=== PATIENT | female | born 1965 | race African-American/Black ===

== ENCOUNTER 2018-04-19 13:23 | Inpatient (IN) | payer MEDICARE, OTHER ==
[~2018-04-19] VITALS: Ht 160 cm; Wt 72.6 kg
[2018-04-19 13:38] VITALS: BP 170/93
--- NOTE | 2018-04-19 13:40 | NUR ---
ED Nurse Note: A/OX4. AMBULATED IN TO ER DUE TO LEFT LOWER CP, VOMITTING ( 3 TIMES LAST NIGHT) SINCE YESTERDAY. NO VOMITING AT THIS TIME.
[2018-04-19] MEDS ORDERED: Lidocaine 2% Visc 15ml soln ORAL ONE (14:00)
[2018-04-19] MEDS ORDERED: Aspirin Baby 81mg ORAL ONE (14:00)
[2018-04-19 14:27] LABS: APPEARANCE,URINE CLEAR; BASOPHILS % (AUTO) 1.3 % (0.0-2.0); BILIRUBIN, URINE NEGATIVE (NEGATIVE); COLOR,URINE PALE YELLOW; EOSINOPHILS % (AUTO) 1.4 % (0.0-3.0); GLUCOSE, URINE (UA) NEGATIVE (NEGATIVE); HEMATOCRIT 34.8 % (37.0-47.0); HEMOGLOBIN 11.2 G/DL (12.0-16.0); KETONES,URINE NEGATIVE (NEGATIVE); LEUKOCYTE ESTERASE ,URINE NEGATIVE (NEGATIVE); LYMPHOCYTES % (AUTO) 42.8 % (20.0-45.0); MEAN CORPUSCULAR VOLUME 92 FL (80-99); MONOCYTES % (AUTO) 5.9 % (1.0-10.0); NEUTROPHILS % (AUTO) 48.5 % (45.0-75.0); NITRITE,URINE NEGATIVE (NEGATIVE); PH,URINE 5 (4.5-8.0); PLATELET COUNT 222 K/UL (150-450); PROTEIN,URINE 3+ (NEGATIVE); RED BLOOD COUNT 3.79 M/UL (4.20-5.40); RED CELL DISTRIBUTION WIDTH 13.8 % (11.6-14.8); UROBILINOGEN,URINE NORMAL MG/DL (0.0-1.0); WHITE BLOOD COUNT 8.9 K/UL (4.8-10.8)
[2018-04-19 14:38] LABS: ANION GAP 11 mmol/L (5-15); BLOOD UREA NITROGEN 21 mg/dL (7-18); CARBON DIOXIDE 23 MMOL/L (21-32); CHLORIDE 105 MMOL/L (98-107); CREATININE 1.3 MG/DL (0.55-1.30); POTASSIUM 4.3 MMOL/L (3.5-5.1); SODIUM 138 MMOL/L (136-145)
[2018-04-19 14:57] LABS: ALANINE AMINOTRANSFERASE 24 U/L (12-78); ALBUMIN 3.3 G/DL (3.4-5.0); ALBUMIN/GLOBULIN RATIO 0.8 (1.0-2.7); ALKALINE PHOSPHATASE 131 U/L (46-116); ASPARTATE AMINO TRANSFERASE 13 U/L (15-37); BILIRUBIN,TOTAL 0.2 MG/DL (0.2-1.0); CKMB 0.9 NG/ML (0.0-3.6); CREATINE KINASE 129 U/L (26-308)
[2018-04-19] MEDS ORDERED: AMLODIPINE BESY10 MG ORAL (15:00)
[2018-04-19] MEDS ORDERED: ATORVASTATIN CA40 MG ORAL (15:00)
[2018-04-19] MEDS ORDERED: VICTOZA 2-0.6 MG/0.1 SUBQ (15:00)
[2018-04-19] MEDS ORDERED: DIOVAN320 MG ORAL (15:00)
[2018-04-19] MEDS ORDERED: VITAMIN D1000 UNI1 ORAL ×2 (15:00→17:48)
[2018-04-19] MEDS ORDERED: GABAPENTIN300 MG ORAL (15:00)
[2018-04-19] MEDS ORDERED: Jardiance ORAL (15:00)
[2018-04-19] MEDS ORDERED: ISOSORBIDE MONO20 MG PO (15:00)
[2018-04-19] MEDS ORDERED: LANTUS SOL100 UNIT/1 SUBQ (15:00)
[2018-04-19] MEDS ORDERED: HUMALOG 75/255 UNIT1 SUBQ (15:00)
[2018-04-19] MEDS ORDERED: METOPROLOL TART50 M1 ORAL (15:00)
[2018-04-19] MEDS ORDERED: ASPIR 8181 MG ORAL (15:00)
[2018-04-19] MEDS ORDERED: BRILINTA90 MG PO (15:00)
[2018-04-19] MEDS ORDERED: CHLORTHALIDONE25 MG ORAL (15:00)
--- NOTE | 2018-04-19 15:01 | NUR ---
ED Nurse Note: Received report from RN Adam, pt is resting at this time, reports pain on under left breast area radiating to back, sharp pain, pt VSS, NSR on monitor and storage bin tender, -n/v/d, resp even and unlabored on RA, will cont monitor. pt advised to notify staff if needed assist.
[2018-04-19 15:03] VITALS: BP 180/88
--- NOTE | 2018-04-19 15:11 | Emergency Room Report ---
History of Present Illness General Chief Complaint: Chest Pain Source: Patient Present Illness HPI This patient has several different complaints. She states that she did see her primary care physician who instructed her to come here to the emergency department. The patient states that for the past 2 days she has had left-sided chest pain. She states she is also had tingling in her left arm. She states she's had 2 days of recurrent vomiting. She states the vomiting will occur at night. She states she's also had constipation. She states she did have a small hard bowel movement this morning. She states that she has vomited about 10 times in the past 2 days. She denies fever or chills. She denies dysuria or hematuria. She denies diarrhea. She has had diffuse abdominal discomfort and recurrent burping. She has no other complaints. Allergies: Coded Allergies: CEPHALEXIN (Verified Allergy, Unknown, 04/19/18) Patient History Past Medical History: see triage record, DM, HTN, OR - Stentx2, CAD, GERD Past Surgical History: karol Social History: Reports: smoking; Denies: alcohol use, drug use Reviewed Nursing Documentation: PMH: Agreed; PSxH: Agreed Nursing Documentation-PMH Hx Hypertension: Yes Hx Diabetes: Yes Hx Gastrointestinal Problems: Yes - gallstone Review of Systems All Other Systems: negative except mentioned in HPI Physical Exam Vital Signs Date Time Temp Pulse Resp B/P (MAP) Pulse Ox O2 Delivery O2 Flow Rate FiO2 04/19/18 13:31 98.2 99 16 159/76 99 Room Air Sp02 EP Interpretation: reviewed, normal General Appearance: no apparent distress, alert, GCS 15, non-toxic Head: normocephalic, atraumatic Eyes: bilateral eye normal inspection, bilateral eye PERRL ENT: hearing grossly normal, normal pharynx, no angioedema, normal voice Neck: full range of motion, supple/symm/no masses Respiratory: lungs clear, normal breath sounds, no respiratory distress, no retraction, no accessory muscle use, speaking full sentences, other - Chest wall is TTP throughout the L. side. Cardiovascular #1: regular rate, rhythm, no edema Gastrointestinal: normal bowel sounds, soft, non-distended, no guarding, no rebound, tenderness - TTP in the epigastrium Rectal: deferred Musculoskeletal: back normal, gait/station normal, normal range of motion, non- tender Neurologic: alert, oriented x3, responsive, motor strength/tone normal, sensory intact, speech normal Psychiatric: judgement/insight normal, memory normal, mood/affect normal, no suicidal/homicidal ideation Skin: normal color, no rash, warm/dry, well hydrated Medical Decision Making Diagnostic Impression: Primary Impression: Chest pain ER Course This patient presents with chest pain. The patient does have a history of coronary artery disease and OR. 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 The patient also has history and physical exam that could also be a gastritis. The patient also has ongoing constipation. The patient will be admitted for further evaluation of her chest pain and recurrent vomiting. Likely this patient will need an evaluation by gastroenterology. She is admitted for further evaluation and treatment. Laboratory Tests Test 04/19/18 14:00 White Blood Count 8.9 K/UL (4.8-10.8) Red Blood Count 3.79 M/UL (4.20-5.40) L Hemoglobin 11.2 G/DL (12.0-16.0) L Hematocrit 34.8 % (37.0-47.0) L Mean Corpuscular Volume 92 FL (80-99) Mean Corpuscular Hemoglobin 29.6 PG (27.0-31.0) Mean Corpuscular Hemoglobin Concent 32.2 G/DL (32.0-36.0) Red Cell Distribution Width 13.8 % (11.6-14.8) Platelet Count 222 K/UL (150-450) Mean Platelet Volume 8.7 FL (6.5-10.1) Neutrophils (%) (Auto) 48.5 % (45.0-75.0) Lymphocytes (%) (Auto) 42.8 % (20.0-45.0) Monocytes (%) (Auto) 5.9 % (1.0-10.0) Eosinophils (%) (Auto) 1.4 % (0.0-3.0) Basophils (%) (Auto) 1.3 % (0.0-2.0) Urine Color Pale yellow Urine Appearance Clear Urine pH 5 (4.5-8.0) Urine Specific [place] 1.010 (1.005-1.035) Urine Protein 3+ (NEGATIVE) H Urine Glucose (UA) Negative (NEGATIVE) Urine Ketones Negative (NEGATIVE) Urine Blood 1+ (NEGATIVE) H Urine Nitrite Negative (NEGATIVE) Urine Bilirubin Negative (NEGATIVE) Urine Urobilinogen Normal MG/DL (0.0-1.0) Urine Leukocyte Esterase Negative (NEGATIVE) Urine RBC 0-2 /HPF (0 - 2) Urine WBC 0 /HPF (0 - 2) Urine Squamous Epithelial Cells Few /LPF (NONE/OCC) Urine Bacteria Occasional /HPF (NONE) Sodium Level 138 MMOL/L (136-145) Potassium Level 4.3 MMOL/L (3.5-5.1) Chloride Level 105 MMOL/L (98-107) Carbon Dioxide Level 23 MMOL/L (21-32) Anion Gap 11 mmol/L (5-15) Blood Urea Nitrogen 21 mg/dL (7-18) H Creatinine 1.3 MG/DL (0.55-1.30) Estimate Glomerular Filtration Rate 42.7 mL/min (>60) Glucose Level 255 MG/DL (74-106) H Calcium Level 9.0 MG/DL (8.5-10.1) Total Bilirubin 0.2 MG/DL (0.2-1.0) Aspartate Amino Transferase (AST) 13 U/L (15-37) L Alanine Aminotransferase (ALT) 24 U/L (12-78) Alkaline Phosphatase 131 U/L (46-116) H Total Creatine Kinase 129 U/L (26-308) Creatine Kinase MB 0.9 NG/ML (0.0-3.6) Creatine Kinase MB Relative Index 0.6 Troponin I 0.007 ng/mL (0.000-0.056) Pro-B-Type Natriuretic Peptide 650 pg/mL (0-125) H Total Protein 7.4 G/DL (6.4-8.2) Albumin 3.3 G/DL (3.4-5.0) L Globulin 4.1 g/dL Albumin/Globulin Ratio 0.8 (1.0-2.7) L Lipase 250 U/L (73-393) Urine Opiates Screen Negative (NEGATIVE) Urine Barbiturates Screen Negative (NEGATIVE) Phencyclidine (PCP) Screen Negative (NEGATIVE) Urine Amphetamines Screen Negative (NEGATIVE) Urine Benzodiazepines Screen Positive (NEGATIVE) H Urine Cocaine Screen Negative (NEGATIVE) Urine Marijuana (THC) Screen Negative (NEGATIVE) EKG Diagnostic Results Rate: normal Rhythm: NSR ST Segments: no acute changes Rhythm Strip Diag. Results EP Interpretation: yes Rate: 90's Rhythm: NSR, no PVC's, no ectopy Chest X-Ray Diagnostic Results Chest X-Ray Diagnostic Results : Chest X-Ray Ordered: Yes # of Views/Limited/Complete: 1 View Indication: Chest Pain EP Interpretation: Yes Interpretation: no consolidation, no effusion, no pneumothorax, no acute cardiopulmonary disease Impression: No acute disease Electronically Signed by: Lizzette Hardy DO CT/MRI/US Diagnostic Results CT/MRI/US Diagnostic Results : Imaging Test Ordered: CT abd/pelvis Impression Impression: Limited assessment of the GI tract, due to lack of enteric contrast demonstration No definite acute abnormality Colonic diverticulosis. No evidence of diverticulitis. Incidental finding of rectus abdominis tendon diastasis Evidence of prior cholecystectomy. Subcentimeter low-attenuation left lobe liver lesion, too small to characterize , most likely benign simple cyst or bile hamartoma. No further follow-up necessary Last Vital Signs Date Time Temp Pulse Resp B/P (MAP) Pulse Ox O2 Delivery O2 Flow Rate FiO2 04/19/18 15:03 98.2 92 16 180/88 99 Room Air Status: improved Disposition: ADMITTED INPATIENT Condition: Stable Lizzette Hardy DO Apr 19, 2018 15:11
[2018-04-19] MEDS ORDERED: Ketorolac 30mg Inj IV ONE (15:30)
[2018-04-19] MEDS ORDERED: Isovue-300 100ml vial INJ PRN (15:30)
[2018-04-19 16:00] VITALS: BP 167/97
--- NOTE | 2018-04-19 16:03 | NUR ---
ED Nurse Note: pt off to CT.
--- NOTE | 2018-04-19 17:16 | Diagnostic Imaging Report ---
Clinical Indication: Abdominal pain and nausea and vomiting x2 days Technique: No oral contrast utilized, per emergency room physician request IV administration nonionic contrast. Venous phase spiral acquisition obtained through the abdomen and pelvis. Multiplanar reconstructions were generated. Total dose length product 587.91 mGycm. CTDIvol(s) 12.54 mGy. Dose reduction achieved using automated exposure control Comparison: none Findings: Assessment of the GI tract is limited, due to lack of enteric contrast demonstration There is colonic diverticulosis. No evidence of diverticulitis. No small bowel distention. The appendix is normal. There is diastasis of the rectus abdominis tendon without krista herniation. No free or loculated intraperitoneal gas or fluid is evident. Distal esophagus, stomach, duodenum are unremarkable. The liver demonstrates a subcentimeter low-attenuation lesion in segment 2. The gallbladder is surgically absent. No biliary ductal dilatation. The pancreas, spleen, adrenals, kidneys are unremarkable. No retroperitoneal or mesenteric mass or adenopathy. No pelvic mass or adenopathy. The uterus and adnexal structures are unremarkable. The bladder is unremarkable. The included lung bases demonstrate minimal posterior dependent atelectatic changes. The bones are unremarkable. Impression: Limited assessment of the GI tract, due to lack of enteric contrast demonstration No definite acute abnormality Colonic diverticulosis. No evidence of diverticulitis. Incidental finding of rectus abdominis tendon diastasis Evidence of prior cholecystectomy. Subcentimeter low-attenuation left lobe liver lesion, too small to characterize, most likely benign simple cyst or bile hamartoma. No further follow-up necessary The CT scanner at [facility] is accredited by the [employer] [place] [place] [employer] and the scans are performed using protocols designed to limit radiation exposure to as low as reasonably achievable to attain images of sufficient resolution adequate for diagnostic evaluation.
--- NOTE | 2018-04-19 17:33 | Diagnostic Imaging Report ---
Indication: Chest pain Technique: One view of the chest Comparison: none Findings: Lungs and pleural spaces are clear. Heart size is normal Impression: No acute process
[2018-04-19] MEDS ORDERED: ATORVASTATIN CA80 MG ORAL (17:47)
[2018-04-19] MEDS ORDERED: ISOSORBIDE MONO30 M1 PO (17:52)
[2018-04-19 18:00] VITALS: BP 167/95
--- NOTE | 2018-04-19 18:45 | NUR ---
ED Nurse Note: attempted to give report Rosio JAQUEZ, states will not be taking report on pt at this time. admission discharge rnamaya Thompson
--- NOTE | 2018-04-19 19:19 | Cardiology Progress Note ---
Assessment/Plan Assessment/Plan The patient is seen and examined, full consult note is dictated. Objective Last 24 Hour Vital Signs Date Time Temp Pulse Resp B/P (MAP) Pulse Ox O2 Delivery O2 Flow Rate FiO2 04/19/18 18:00 98.2 89 16 167/95 99 Room Air 04/19/18 16:09 98.2 04/19/18 16:00 98.2 90 16 167/97 99 Room Air 04/19/18 15:03 98.2 92 16 180/88 99 Room Air 04/19/18 13:38 98.2 92 18 170/93 100 Room Air 04/19/18 13:38 82 16 Room Air 04/19/18 13:31 98.2 99 16 159/76 99 Room Air Laboratory Tests Test 04/19/18 14:00 White Blood Count 8.9 K/UL (4.8-10.8) Red Blood Count 3.79 M/UL (4.20-5.40) L Hemoglobin 11.2 G/DL (12.0-16.0) L Hematocrit 34.8 % (37.0-47.0) L Mean Corpuscular Volume 92 FL (80-99) Mean Corpuscular Hemoglobin 29.6 PG (27.0-31.0) Mean Corpuscular Hemoglobin Concent 32.2 G/DL (32.0-36.0) Red Cell Distribution Width 13.8 % (11.6-14.8) Platelet Count 222 K/UL (150-450) Mean Platelet Volume 8.7 FL (6.5-10.1) Neutrophils (%) (Auto) 48.5 % (45.0-75.0) Lymphocytes (%) (Auto) 42.8 % (20.0-45.0) Monocytes (%) (Auto) 5.9 % (1.0-10.0) Eosinophils (%) (Auto) 1.4 % (0.0-3.0) Basophils (%) (Auto) 1.3 % (0.0-2.0) Urine Color Pale yellow Urine Appearance Clear Urine pH 5 (4.5-8.0) Urine Specific [place] 1.010 (1.005-1.035) Urine Protein 3+ (NEGATIVE) H Urine Glucose (UA) Negative (NEGATIVE) Urine Ketones Negative (NEGATIVE) Urine Blood 1+ (NEGATIVE) H Urine Nitrite Negative (NEGATIVE) Urine Bilirubin Negative (NEGATIVE) Urine Urobilinogen Normal MG/DL (0.0-1.0) Urine Leukocyte Esterase Negative (NEGATIVE) Urine RBC 0-2 /HPF (0 - 2) Urine WBC 0 /HPF (0 - 2) Urine Squamous Epithelial Cells Few /LPF (NONE/OCC) Urine Bacteria Occasional /HPF (NONE) Sodium Level 138 MMOL/L (136-145) Potassium Level 4.3 MMOL/L (3.5-5.1) Chloride Level 105 MMOL/L (98-107) Carbon Dioxide Level 23 MMOL/L (21-32) Anion Gap 11 mmol/L (5-15) Blood Urea Nitrogen 21 mg/dL (7-18) H Creatinine 1.3 MG/DL (0.55-1.30) Estimat Glomerular Filtration Rate 42.7 mL/min (>60) Glucose Level 255 MG/DL (74-106) H Calcium Level 9.0 MG/DL (8.5-10.1) Total Bilirubin 0.2 MG/DL (0.2-1.0) Aspartate Amino Transf (AST/SGOT) 13 U/L (15-37) L Alanine Aminotransferase (ALT/SGPT) 24 U/L (12-78) Alkaline Phosphatase 131 U/L (46-116) H Total Creatine Kinase 129 U/L (26-308) Creatine Kinase MB 0.9 NG/ML (0.0-3.6) Creatine Kinase MB Relative Index 0.6 Troponin I 0.007 ng/mL (0.000-0.056) Pro-B-Type Natriuretic Peptide 650 pg/mL (0-125) H Total Protein 7.4 G/DL (6.4-8.2) Albumin 3.3 G/DL (3.4-5.0) L Globulin 4.1 g/dL Albumin/Globulin Ratio 0.8 (1.0-2.7) L Lipase 250 U/L (73-393) Urine Opiates Screen Negative (NEGATIVE) Urine Barbiturates Screen Negative (NEGATIVE) Phencyclidine (PCP) Screen Negative (NEGATIVE) Urine Amphetamines Screen Negative (NEGATIVE) Urine Benzodiazepines Screen Positive (NEGATIVE) H Urine Cocaine Screen Negative (NEGATIVE) Urine Marijuana (THC) Screen Negative (NEGATIVE) Connor Rivera MD Apr 19, 2018 19:19
--- NOTE | 2018-04-19 19:30 | NUR ---
ED Nurse Note: attempted giving report, unable to give report at this time due to no nurse assigned to the pt. charge nursed notified.
--- NOTE | 2018-04-19 20:02 | NUR ---
ED Nurse Note: called Dr. Rivera for admission orders and left voicemail.
--- NOTE | 2018-04-19 20:30 | NUR ---
ED Nurse Note: pt transferred to Tele floor, all belongings sent with pt, resp even and unlabored, VSS.
[2018-04-19 21:00] VITALS: BP 176/83
--- NOTE | 2018-04-19 21:00 | NUR ---
NURSE NOTES: Received report from Davey Shepard ED RN. Pt came to 2E via gurney and walked to the bed with steady gait. Belonging list checked and environmental monitoring technician is applied. Pt is able to make needs known. Safety measures are applied as bed in lowest position, side rails up x2, and breaks are engaged. Call light and side table are w/in reach. Will contact PCP to complete admission order. Addendum: 04/19/18 at 8730 by SATYA BUR[address] RN Dr. Rivera called back and tele ordered. Will carry out the orders.
[2018-04-19] MEDS ORDERED: Bisacodyl EC 5mg tab ORAL SCH (21:15)
[2018-04-19] MEDS ORDERED: Fleet's Enema 133ml RECTAL SCH (21:15)
[2018-04-19] MEDS ORDERED: Nulytely 4L ORAL ONE (22:00)
[2018-04-19] MEDS ORDERED: Nitroglycerin Subl 0.4mg tab SL PRN (23:00)
[2018-04-19] MEDS ORDERED: Losartan 50mg tab ORAL ONE (23:15)
[2018-04-19] MEDS ORDERED: Losartan 50mg tab ORAL PRN (23:15)
[2018-04-19] MEDS ORDERED: Vitamin D 1000 IU Tab ORAL SCH (23:30)
[2018-04-20] VITALS (11 sets, daily range): BP systolic 137–168; BP diastolic 75–95
[2018-04-20] MEDS: Norco 5mg/325mg tab ORAL PRN ×2 (00:28→20:34)
[2018-04-20] MEDS ORDERED: Fleet's Enema 133ml RECTAL SCH ×2 (02:00→06:00)
--- NOTE | 2018-04-20 03:13 | NUR ---
NURSE NOTES: Midnight NPO has been kept. Pt is resting in the bed w/o respiratory distress in 2L NC. Will continue to monitor.
[2018-04-20] MEDS ORDERED: NS 500ML IVPB ONE ×2 (04:03→13:15)
[2018-04-20] MEDS: NovoLOG Insulin Flexpen SUBQ SCH ×4 (06:30→20:39)
[2018-04-20 07:11] LABS: ANION GAP 10 mmol/L (5-15); BLOOD UREA NITROGEN 20 mg/dL (7-18); CALCIUM 8.1 MG/DL (8.5-10.1); CARBON DIOXIDE 21 MMOL/L (21-32); CHLORIDE 107 MMOL/L (98-107); CHOLESTEROL 161 MG/DL (< 200); CREATININE 1.4 MG/DL (0.55-1.30); HDL CHOLESTEROL 35 MG/DL (40-60); POTASSIUM 3.9 MMOL/L (3.5-5.1); SODIUM 138 MMOL/L (136-145); TRIGLYCERIDES 246 MG/DL (30-150)
--- NOTE | 2018-04-20 07:20 | NUR ---
NURSE NOTES: Received report from Skye JAQUEZ. Pt is awake, alert, oriented x4, resting in bed while watching TV. Pt has been NPO since midnight, with the exception of her Bowel prep as ordered, awaiting for EGD and Colonoscopy as scheduled for today. Denies pain, on room air with no respiratory distress. Pt is ambulatory with steady gait. IV access on left FA #20G, infusing D5 0.45% NS at 50ml/hour. Skin is intact. Pt has had BM x2 during previous shift after receiving bowel prep. Per nurse and pt report, stool is still semi-solid, not clear. Will administer Enema as ordered. Call light is placed within easy reach, bed in lowest position, two side rails up, brakes engaged. Will continue to monitor pt and follow plan of care per MD orders and protocol.
--- NOTE | 2018-04-20 07:48 | NUR ---
HAND-OFF: Report given to GISELE Serna. Addendum: 04/20/18 at 0803 by SATYA BURGOS RN Consents is done in the chart.
--- NOTE | 2018-04-20 07:57 | NUR ---
CASE MANAGEMENT:REVIEW 52 YR OLD FEMALE FROM HOME CC: CHEST PAIN AND VOMITING PMH: HI. STENTS X2. GALLSTONES SI: ACS 98.2 99 16 159/76 99% ON RA GLUCOSE+255 TROPONIN(-) IS: ASA IV PEPCID IV TORADOL GI COCKTAIL 1L NS BOLUS CT ABDOMEN CXR : TO TELEMETRY INTERQUAL CRITERIA MET
[2018-04-20] MEDS: Imdur 30mg tab ORAL SCH (09:00)
[2018-04-20] MEDS: Irbesartan 150mg tablet ORAL SCH (09:00)
[2018-04-20] MEDS: Heparin 5000 units/ml inj SUBQ SCH ×2 (09:00→20:38)
[2018-04-20] MEDS: Metoprolol Tartrate 50mg tab ORAL SCH ×2 (09:12→20:44)
[2018-04-20] MEDS: D5 1/2NS 1,000 ML IV SCH (09:17)
--- NOTE | 2018-04-20 09:42 | Pre-Procedure Note/Attestation ---
Pre-Procedure Note/Attestation Complete Prior to Procedure Planned Procedure: not applicable Procedure Narrative: esophagogastroduodenoscopy and colonoscopy Indications for Procedure Pre-Operative Diagnosis: anemia, abd pain Attestation I attest that I discussed the nature of the procedure; its benefits; risks and complications; and alternatives (and the risks and benefits of such alternatives ), prior to the procedure, with the patient (or the patient's legal lead generation representative). I attest that, if there was a reasonable possibility of needing a blood transfusion, the patient (or the patient's legal lead generation representative) was given the [facility] standardized written summary, pursuant to the [place] Blood Safety Act ([place] Health and Safety Code # 1645, as amended). I attest that I re-evaluated the patient just prior to the surgery and that there has been no change in the patient's H&P, except as documented below: Grey De La Rosa MD Apr 20, 2018 09:42
--- NOTE | 2018-04-20 09:44 | General Progress Note ---
Assessment/Plan Problem List: (1) Anemia ICD Codes: D64.9 - Anemia, unspecified SNOMED: 420865304 (2) Chest pain ICD Codes: R07.9 - Chest pain, unspecified SNOMED: 55769236 Assessment/Plan plan EGD and colonoscopy for today Subjective ROS Limited/Unobtainable: Yes Allergies: Coded Allergies: CEPHALEXIN (Verified Allergy, Unknown, 04/19/18) Subjective abd pain vomiting Objective Last 24 Hour Vital Signs Date Time Temp Pulse Resp B/P (MAP) Pulse Ox O2 Delivery O2 Flow Rate FiO2 04/20/18 09:12 83 143/81 04/20/18 09:12 83 143/81 04/20/18 04:00 97.0 88 18 157/86 (109) 93 04/20/18 03:43 86 04/20/18 02:30 Nasal Cannula 2.0 04/20/18 00:26 145/75 04/20/18 00:00 97.3 88 20 145/75 (98) 93 04/19/18 23:43 82 04/19/18 21:00 97.8 90 20 176/83 (114) 90 04/19/18 20:30 97.4 91 16 158/87 100 Room Air 04/19/18 18:00 98.2 89 16 167/95 99 Room Air 04/19/18 16:09 98.2 04/19/18 16:00 98.2 90 16 167/97 99 Room Air 04/19/18 15:03 98.2 92 16 180/88 99 Room Air 04/19/18 13:38 98.2 92 18 170/93 100 Room Air 04/19/18 13:38 82 16 Room Air 04/19/18 13:31 98.2 99 16 159/76 99 Room Air Laboratory Tests 04/19/18 14:00: White Blood Count 8.9, Red Blood Count 3.79L, Hemoglobin 11.2L, Hematocrit 34.8L , Mean Corpuscular Volume 92, Mean Corpuscular Hemoglobin 29.6, Mean Corpuscular Hemoglobin Concent 32.2, Red Cell Distribution Width 13.8, Platelet Count 222, Mean Platelet Volume 8.7, Neutrophils (%) (Auto) 48.5, Lymphocytes (% ) (Auto) 42.8, Monocytes (%) (Auto) 5.9, Eosinophils (%) (Auto) 1.4, Basophils ( %) (Auto) 1.3, Urine Color Pale yellow, Urine Appearance Clear, Urine pH 5, Urine Specific [place] 1.010, Urine Protein 3+H, Urine Glucose (UA) Negative, Urine Ketones Negative, Urine Blood 1+H, Urine Nitrite Negative, Urine Bilirubin Negative, Urine Urobilinogen Normal, Urine Leukocyte Esterase Negative , Urine RBC 0-2, Urine WBC 0, Urine Squamous Epithelial Cells Few, Urine Bacteria Occasional, Sodium Level 138, Potassium Level 4.3, Chloride Level 105, Carbon Dioxide Level 23, Anion Gap 11, Blood Urea Nitrogen 21H, Creatinine 1.3, Estimat Glomerular Filtration Rate 42.7, Glucose Level 255H, Calcium Level 9.0, Total Bilirubin 0.2, Aspartate Amino Transf (AST/SGOT) 13L, Alanine Aminotransferase (ALT/SGPT) 24, Alkaline Phosphatase 131H, Total Creatine Kinase 129, Creatine Kinase MB 0.9, Creatine Kinase MB Relative Index 0.6, Troponin I 0.007, Pro-B-Type Natriuretic Peptide 650H, Total Protein 7.4, Albumin 3.3L, Globulin 4.1, Albumin/Globulin Ratio 0.8L, Lipase 250, Urine Opiates Screen Negative, Urine Barbiturates Screen Negative, Phencyclidine (PCP ) Screen Negative, Urine Amphetamines Screen Negative, Urine Benzodiazepines Screen PositiveH, Urine Cocaine Screen Negative, Urine Marijuana (THC) Screen Negative 04/20/18 00:20: Troponin I 0.009 04/20/18 05:00: Sodium Level 138, Potassium Level 3.9, Chloride Level 107, Carbon Dioxide Level 21, Anion Gap 10, Blood Urea Nitrogen 20H, Creatinine 1.4H, Estimat Glomerular Filtration Rate 47.5, Glucose Level 348H, Calcium Level 8.1L, Prothrombin Time 10.7, Prothromb Time International Ratio 1.0, Activated Partial Thromboplast Time 28, Hemoglobin A1c 10.6H, Triglycerides Level 246H, Cholesterol Level 161, LDL Cholesterol 94, HDL Cholesterol 35L, Cholesterol/HDL Ratio 4.6H Height (Feet): 5 Height (Inches): 3.00 Weight (Pounds): 160 General Appearance: alert EENT: normal ENT inspection Neck: supple Cardiovascular: normal rate Respiratory/Chest: decreased breath sounds Abdomen: normal bowel sounds, non tender, soft Extremities: non-tender Vosoghi,Grey MD Apr 20, 2018 09:44
[2018-04-20] MEDS ORDERED: Magnesium Citrate Liq Btl ORAL ONE (10:00)
--- NOTE | 2018-04-20 10:00 | NUR ---
NURSE NOTES: Spoke with Dr De La Rosa over the phone. Will administer Mag Citrate PO, and Enema as ordered.
--- NOTE | 2018-04-20 10:07 | GI Initial Consult Note ---
History of Present Illness General Date patient seen: Apr 20, 2018 Time patient seen: 09:00 Reason for Hospitalization: Chest Pain Referring physician: BING Reason for Consultation: ABDOMINAL PAIN, N/V Present Illness HPI This patient has several different complaints. She states that she did see her primary care physician who instructed her to come here to the emergency department. The patient states that for the past 2 days she has had left-sided chest pain. She states she is also had tingling in her left arm. She states she's had 2 days of recurrent vomiting. She states the vomiting will occur at night. She states she's also had constipation. She states she did have a small hard bowel movement this morning. She states that she has vomited about 10 times in the past 2 days. She denies fever or chills. She denies dysuria or hematuria. She denies diarrhea. She has had diffuse abdominal discomfort and recurrent burping. She has no other complaints. GI consulted for abdominal pain, recurrent vomiting. The patient was seen, awake alert and oriented x4 in no apparent distress. The patient has complaint of abdominal versus chest pain. Stated that he had excessive vomiting for the past 2 days. At this time seems comfortable without any signs or symptoms of nausea or vomiting. Labs reviewed; patient noted with mild anemia. No transaminitis. Positive U tox for benzodiazepine. Abdominal CT was done with no acute abnormality. Patient has no history of endoscopic or colonoscopy. Home Meds Reported Medications Isosorbide Mononitrate (ISOSORBIDE MONONITRATE ER) 30 Mg Tab.er.24h, 30 MG PO DAILY, TAB 04/19/18 Cholecalciferol (Vitamin D3)* (VITAMIN D*) 1,000 Unit Tablet, 2000 UNITS ORAL QWEEK, #30 TAB 0 Refills 04/19/18 Atorvastatin Calcium* (LIPITOR*) 80 Mg Tablet, 80 MG ORAL BEDTIME, TAB 04/19/18 Gabapentin* (GABAPENTIN*) 300 Mg Capsule, 300 MG ORAL THREE TIMES A DAY, CAP 0 Refills 04/19/18 Ticagrelor* (BRILINTA*) 90 Mg Tablet, 90 MG PO DAILY, TAB 04/19/18 Aspirin* (ASPIR 81*) 81 Mg Tablet.dr, 81 MG ORAL DAILY, TAB 04/19/18 Metoprolol Tartrate* (METOPROLOL TARTRATE*) 50 Mg Tablet, 50 MG ORAL EVERY 12 HOURS, TAB 04/19/18 Amlodipine Besylate* (AMLODIPINE BESYLATE*) 10 Mg Tablet, 10 MG ORAL DAILY, TAB 04/19/18 Chlorthalidone* (CHLORTHALIDONE*) 25 Mg Tablet, 25 MG ORAL DAILY, TAB 04/19/18 Valsartan (DIOVAN) 320 Mg Tablet, 320 MG ORAL DAILY, TAB 04/19/18 [Jardiance ] No Conflict Check, 25 MG ORAL DAILY 04/19/18 Insulin Human Lispro (Humalog) 100 Unit/1 Ml Vial, 16 UNITS SUBQ TID, #1 UNIT 0 Refills 04/19/18 Insulin Glargine (LANTUS) 100 Unit/1 Ml Insuln.pen, 40 UNITS SUBQ BEDTIME, #1 EA 0 Refills 04/19/18 Liraglutide (VICTOZA 2-KAREN) 0.6 Mg/0.1 Ml Pen.injctr, 1.8 MG SUBQ DAILY, EA 0 Refills 04/19/18 Discontinued Reported Medications Cholecalciferol (Vitamin D3)* (VITAMIN D*) 1,000 Unit Tablet, 2000 UNITS ORAL ONCE A WEEK, #30 TAB 0 Refills 04/19/18 Isosorbide Mononitrate (ISOSORBIDE MONONITRATE) 20 Mg Tablet, 30 MG PO DAILY, TAB 04/19/18 Atorvastatin Calcium* (ATORVASTATIN CALCIUM*) 40 Mg Tablet, 80 MG ORAL BEDTIME, TAB 04/19/18 Med list reviewed/reconciled: Yes Allergies: Coded Allergies: CEPHALEXIN (Verified Allergy, Unknown, 04/19/18) Patient History PMH Narrative Past Medical History: see triage record, DM, HTN, CA - Stentx2, CAD, GERD Past Surgical History: karol Social History: Reports: smoking; Denies: alcohol use, drug use Reviewed Nursing Documentation: PMH: Agreed; PSxH: Agreed Nursing Documentation-PMH Hx Hypertension: Yes Hx Diabetes: Yes Hx Gastrointestinal Problems: Yes - gallstone Review of Systems All Other Systems: negative except mentioned in HPI Physical Exam Vital Signs Date Time Temp Pulse Resp B/P (MAP) Pulse Ox O2 Delivery O2 Flow Rate FiO2 04/19/18 13:31 98.2 99 16 159/76 99 Room Air 04/20/18 02:30 2.0 Sp02 EP Interpretation: reviewed, normal Labs Laboratory Tests Test 04/19/18 14:00 04/20/18 00:20 04/20/18 05:00 White Blood Count 8.9 K/UL (4.8-10.8) Red Blood Count 3.79 M/UL (4.20-5.40) L Hemoglobin 11.2 G/DL (12.0-16.0) L Hematocrit 34.8 % (37.0-47.0) L Mean Corpuscular Volume 92 FL (80-99) Mean Corpuscular Hemoglobin 29.6 PG (27.0-31.0) Mean Corpuscular Hemoglobin Concent 32.2 G/DL (32.0-36.0) Red Cell Distribution Width 13.8 % (11.6-14.8) Platelet Count 222 K/UL (150-450) Mean Platelet Volume 8.7 FL (6.5-10.1) Neutrophils (%) (Auto) 48.5 % (45.0-75.0) Lymphocytes (%) (Auto) 42.8 % (20.0-45.0) Monocytes (%) (Auto) 5.9 % (1.0-10.0) Eosinophils (%) (Auto) 1.4 % (0.0-3.0) Basophils (%) (Auto) 1.3 % (0.0-2.0) Urine Color Pale yellow Urine Appearance Clear Urine pH 5 (4.5-8.0) Urine Specific [place] 1.010 (1.005-1.035) Urine Protein 3+ (NEGATIVE) H Urine Glucose (UA) Negative (NEGATIVE) Urine Ketones Negative (NEGATIVE) Urine Blood 1+ (NEGATIVE) H Urine Nitrite Negative (NEGATIVE) Urine Bilirubin Negative (NEGATIVE) Urine Urobilinogen Normal MG/DL (0.0-1.0) Urine Leukocyte Esterase Negative (NEGATIVE) Urine RBC 0-2 /HPF (0 - 2) Urine WBC 0 /HPF (0 - 2) Urine Squamous Epithelial Cells Few /LPF (NONE/OCC) Urine Bacteria Occasional /HPF (NONE) Sodium Level 138 MMOL/L (136-145) 138 MMOL/L (136-145) Potassium Level 4.3 MMOL/L (3.5-5.1) 3.9 MMOL/L (3.5-5.1) Chloride Level 105 MMOL/L (98-107) 107 MMOL/L (98-107) Carbon Dioxide Level 23 MMOL/L (21-32) 21 MMOL/L (21-32) Anion Gap 11 mmol/L (5-15) 10 mmol/L (5-15) Blood Urea Nitrogen 21 mg/dL (7-18) H 20 mg/dL (7-18) H Creatinine 1.3 MG/DL (0.55-1.30) 1.4 MG/DL (0.55-1.30) H Estimat Glomerular Filtration Rate 42.7 mL/min (>60) 47.5 mL/min (>60) Glucose Level 255 MG/DL (74-106) H 348 MG/DL (74-106) H Calcium Level 9.0 MG/DL (8.5-10.1) 8.1 MG/DL (8.5-10.1) L Total Bilirubin 0.2 MG/DL (0.2-1.0) Aspartate Amino Transf (AST/SGOT) 13 U/L (15-37) L Alanine Aminotransferase (ALT/SGPT) 24 U/L (12-78) Alkaline Phosphatase 131 U/L (46-116) H Total Creatine Kinase 129 U/L (26-308) Creatine Kinase MB 0.9 NG/ML (0.0-3.6) Creatine Kinase MB Relative Index 0.6 Troponin I 0.007 ng/mL (0.000-0.056) 0.009 ng/mL (0.000-0.056) Pro-B-Type Natriuretic Peptide 650 pg/mL (0-125) H Total Protein 7.4 G/DL (6.4-8.2) Albumin 3.3 G/DL (3.4-5.0) L Globulin 4.1 g/dL Albumin/Globulin Ratio 0.8 (1.0-2.7) L Lipase 250 U/L (73-393) Urine Opiates Screen Negative (NEGATIVE) Urine Barbiturates Screen Negative (NEGATIVE) Phencyclidine (PCP) Screen Negative (NEGATIVE) Urine Amphetamines Screen Negative (NEGATIVE) Urine Benzodiazepines Screen Positive (NEGATIVE) H Urine Cocaine Screen Negative (NEGATIVE) Urine Marijuana (THC) Screen Negative (NEGATIVE) Prothrombin Time 10.7 SEC (9.30-11.50) Prothromb Time International Ratio 1.0 (0.9-1.1) Activated Partial Thromboplast Time 28 SEC (23-33) Hemoglobin A1c 10.6 % (4.3-6.0) H Triglycerides Level 246 MG/DL (30-150) H Cholesterol Level 161 MG/DL (< 200) LDL Cholesterol 94 mg/dL (<100) HDL Cholesterol 35 MG/DL (40-60) L Cholesterol/HDL Ratio 4.6 (3.3-4.4) H General Appearance: well appearing, no apparent distress, alert Head: normocephalic EENT: PERRL/EOMI, normal ENT inspection Neck: supple Respiratory: normal breath sounds, no respiratory distress Cardiovascular: normal rate Gastrointestinal: normal inspection, non tender, soft, normal bowel sounds, non -distended Rectal: deferred Genitourinary: no CVA tenderness Musculoskeletal: normal inspection, back normal Neurologic: normal inspection, alert, oriented x3, responsive Psychiatric: normal inspection, judgement/insight normal, memory normal Skin: normal inspection, normal color, no rash, warm/dry, palpation normal, well hydrated Lymphatic: normal inspection, no adenopathy Current Medications Current Medications Medications (Trade) Dose Ordered Sig/Ottoniel Route PRN Reason Start Time Stop Time Status Last Admin Dose Admin Acetaminophen (Tylenol) 650 mg EVERY 6 HOURS PRN ORAL fever 04/19/18 23:00 05/19/18 22:59 Acetaminophen/ Hydrocodone Bitart (Floyd 5/325) 1 tab Q6H PRN ORAL For Pain 04/19/18 23:15 04/26/18 23:14 04/20/18 00:28 Amlodipine Besylate (Norvasc) 10 mg DAILY ORAL 04/20/18 09:00 05/20/18 08:59 04/20/18 09:12 Atorvastatin Calcium (Lipitor) 80 mg BEDTIME ORAL 04/20/18 21:00 05/20/18 20:59 Chlorthalidone (Chlorthalidone) 25 mg DAILY ORAL 04/20/18 09:00 05/20/18 08:59 Clonidine HCl (Catapres Tab) 0.1 mg EVERY 8 HOURS PRN ORAL For High Blood Pressure 04/19/18 23:15 05/19/18 23:14 Dextrose (Dextrose 50%) 25 ml Q30M PRN IV Hypoglycemia 04/19/18 23:00 05/19/18 22:59 Dextrose (Dextrose 50%) 50 ml Q30M PRN IV Hypoglycemia 04/19/18 23:00 05/19/18 22:59 Dextrose/Sodium Chloride 1,000 ml @ 50 mls/hr Q20H IV 04/20/18 08:00 05/20/18 07:59 04/20/18 09:17 Gabapentin (Neurontin) 300 mg Q8HR ORAL 04/20/18 09:00 05/20/18 08:59 Heparin Sodium (Porcine) (Heparin 5000 units/ml) 5,000 units EVERY 12 HOURS SUBQ 04/20/18 09:00 05/20/18 08:59 Insulin Aspart (NovoLOG) BEFORE MEALS AND HS SUBQ 04/20/18 06:30 05/20/18 06:29 04/20/18 06:30 Insulin Detemir (Levemir) 40 units BEDTIME SUBQ 04/20/18 21:00 05/20/18 20:59 Irbesartan (Avapro) 300 mg DAILY ORAL 04/20/18 09:00 05/20/18 08:59 Isosorbide Mononitrate (Imdur) 30 mg DAILY ORAL 04/20/18 09:00 05/20/18 08:59 Losartan Potassium (Cozaar) 50 mg DAILY PRN ORAL For High Blood Pressure 04/19/18 23:15 05/19/18 23:14 Magnesium Citrate (Citrate Of Magnesia) 300 ml ONCE ONCE ORAL 04/20/18 10:00 04/20/18 10:01 Metoprolol Tartrate (Lopressor) 50 mg EVERY 12 HOURS ORAL 04/20/18 09:00 05/20/18 08:59 04/20/18 09:12 Nitroglycerin (Ntg) 0.4 mg Q5M PRN SL Prn Chest Pain 04/19/18 23:00 05/19/18 22:59 Non-Formulary Medication (Non-Formulary Med) 1 ea DAILY SUBQ 04/20/18 09:00 05/20/18 08:59 UNV Pantoprazole (Protonix) 40 mg DAILY ORAL 04/20/18 09:00 05/20/18 08:59 Vitamin D (Vitamin D) 2,000 intlu QWEEK ORAL 04/26/18 09:00 05/19/18 08:59 GI: Plan Problems: (1) Nausea & vomiting (2) Anemia Plan EGD/colonoscopy scheduled for today. - maintain NPO + IVFs - prn transfusions anemia work up monitor H&H, prn transfusions bowel regime ppi fu labs will follow with additional recommendations post procedure Discussed with Dr. De La Rosa. Thank you for this patient referral, we will follow. The patient was seen and examined at bedside and all new and available data was reviewed in the patients chart. I agree with the above findings, impression and plan. (Patient seen earlier today. Signature stamp does not reflect patient encounter time.). - MD Yamila [facility]loanNorthern [facility] [employer] Apr 20, 2018 10:07
--- NOTE | 2018-04-20 11:26 | Anethesia Preoperative Eval ---
Anesthesia Pre-op PMH/ROS General Date of Evaluation: Apr 20, 2018 Time of Evaluation: 11:25 Anesthesiologist: Caridad Hyatt CRNA ASA Score: ASA 3 Mallampati Score Class I : Soft palate, uvula, fauces, pillars visible Class II: Soft palate, uvula, fauces visible Class III: Soft palate, base of uvula visible Class IV: Only hard plate visible Mallampati Classification: Class II Surgeon: Estrella Diagnosis: chest pain Surgical Procedure: EGD and colonoscopy Anesthesia History: none Family History: no anesthesia problems Allergies: Coded Allergies: CEPHALEXIN (Verified Allergy, Unknown, 04/19/18) Medications: see eMAR Patient NPO?: Yes NPO Date: Apr 20, 2018 NPO Time: 04:00 Past Medical History Cardiovascular: Reports: HTN; Denies: CAD, DC, valve dz, arrhythmia, other Pulmonary: Denies: asthma, COPD, MANDO, other Gastrointestinal/Genitourinary: Reports: GERD, other - gall stones; Denies: CRI, ESRD Neurologic/Psychiatric: Denies: dementia, CVA, depression/anxiety, TIA, other Endocrine: Reports: DM; Denies: hypothyroidism, steroids, other HEENT: Denies: cataract (L), cataract (R), glaucoma, NOORVIK (L), NOORVIK (R), other Hematology/Immune: Reports: anemia; Denies: DVT, bleeding disorder, other Musculoskeletal/Integumentary: Denies: OA, RA, DJD, DDD, edema, other PMH Narrative: as above PSxH Narrative: see H & P Anesthesia Pre-op Phys. Exam Physician Exam Last Vital Signs Date Time Temp Pulse Resp B/P (MAP) Pulse Ox O2 Delivery O2 Flow Rate FiO2 04/20/18 09:12 83 143/81 04/20/18 09:00 Room Air 04/20/18 08:00 97.9 17 99 04/20/18 02:30 2.0 Constitutional: NAD Neurologic: CN 2-12 intact Cardiovascular: RRR Respiratory: CTA Gastrointestinal: S/NT/ND Airway Exam Mallampati Score: Class II MO: full Neck: FROM TMD: > 3 FB ROM: full Teeth: intact Dentures: no upper, no lower Anesthesia Pre-op A/P Labs Hematology Test 04/19/18 14:00 White Blood Count 8.9 K/UL (4.8-10.8) Red Blood Count 3.79 M/UL (4.20-5.40) L Hemoglobin 11.2 G/DL (12.0-16.0) L Hematocrit 34.8 % (37.0-47.0) L Mean Corpuscular Volume 92 FL (80-99) Mean Corpuscular Hemoglobin 29.6 PG (27.0-31.0) Mean Corpuscular Hemoglobin Concent 32.2 G/DL (32.0-36.0) Red Cell Distribution Width 13.8 % (11.6-14.8) Platelet Count 222 K/UL (150-450) Mean Platelet Volume 8.7 FL (6.5-10.1) Neutrophils (%) (Auto) 48.5 % (45.0-75.0) Lymphocytes (%) (Auto) 42.8 % (20.0-45.0) Monocytes (%) (Auto) 5.9 % (1.0-10.0) Eosinophils (%) (Auto) 1.4 % (0.0-3.0) Basophils (%) (Auto) 1.3 % (0.0-2.0) Coagulation Test 04/20/18 05:00 Prothrombin Time 10.7 SEC (9.30-11.50) Prothromb Time International Ratio 1.0 (0.9-1.1) Activated Partial Thromboplast Time 28 SEC (23-33) Chemistry Test 04/19/18 14:00 04/20/18 00:20 04/20/18 05:00 Sodium Level 138 MMOL/L (136-145) 138 MMOL/L (136-145) Potassium Level 4.3 MMOL/L (3.5-5.1) 3.9 MMOL/L (3.5-5.1) Chloride Level 105 MMOL/L (98-107) 107 MMOL/L (98-107) Carbon Dioxide Level 23 MMOL/L (21-32) 21 MMOL/L (21-32) Anion Gap 11 mmol/L (5-15) 10 mmol/L (5-15) Blood Urea Nitrogen 21 mg/dL (7-18) H 20 mg/dL (7-18) H Creatinine 1.3 MG/DL (0.55-1.30) 1.4 MG/DL (0.55-1.30) H Estimat Glomerular Filtration Rate 42.7 mL/min (>60) 47.5 mL/min (>60) Glucose Level 255 MG/DL (74-106) H 348 MG/DL (74-106) H Calcium Level 9.0 MG/DL (8.5-10.1) 8.1 MG/DL (8.5-10.1) L Total Bilirubin 0.2 MG/DL (0.2-1.0) Aspartate Amino Transf (AST/SGOT) 13 U/L (15-37) L Alanine Aminotransferase (ALT/SGPT) 24 U/L (12-78) Alkaline Phosphatase 131 U/L (46-116) H Total Creatine Kinase 129 U/L (26-308) Creatine Kinase MB 0.9 NG/ML (0.0-3.6) Creatine Kinase MB Relative Index 0.6 Troponin I 0.007 ng/mL (0.000-0.056) 0.009 ng/mL (0.000-0.056) Pro-B-Type Natriuretic Peptide 650 pg/mL (0-125) H Total Protein 7.4 G/DL (6.4-8.2) Albumin 3.3 G/DL (3.4-5.0) L Globulin 4.1 g/dL Albumin/Globulin Ratio 0.8 (1.0-2.7) L Lipase 250 U/L (73-393) Hemoglobin A1c 10.6 % (4.3-6.0) H Triglycerides Level 246 MG/DL (30-150) H Cholesterol Level 161 MG/DL (< 200) LDL Cholesterol 94 mg/dL (<100) HDL Cholesterol 35 MG/DL (40-60) L Cholesterol/HDL Ratio 4.6 (3.3-4.4) H Risk Assessment & Plan Assessment: ASA 3, ok to proceed Plan: MAC Status Change Before Surgery: No Pre-Antibiotics Given Within 1 Hr of Incision: Caridad Marcelo CRNA Apr 20, 2018 11:26
--- NOTE | 2018-04-20 13:16 | General Progress Note ---
Progress Note Progress Note [id number] full note dictated Zoila Parks MD Apr 20, 2018 13:16
[2018-04-20] MEDS ORDERED: Propofol 200mg/20ml IV ONE (13:30)
--- NOTE | 2018-04-20 14:28 | Immediate Post-Op Evaluation ---
Immediate Post-Op Evalulation Immediate Post-Op Evalulation Procedure: EGD, colonoscopy, polypectomy Date of Evaluation: Apr 20, 2018 Time of Evaluation: 14:19 IV Fluids: 0.9 NS 500 ml Blood Pressure Systolic: 137 Blood Pressure Diastolic: 86 Pulse Rate: 84 Respiratory Rate: 20 O2 Sat by Pulse Oximetry: 100 Temperature (Fahrenheit): 97.4 Pain Score (1-10): 0 Nausea: No Vomiting: No Complications none Patient Status: awake Hydration Status: adequate Caridad Hyatt CRNA Apr 20, 2018 14:27
--- NOTE | 2018-04-20 14:29 | 48 Hour Post Anesthesia Eval ---
Post Anesthesia Evaluation Procedure: EGD, colonoscopy, polypectomy Date of Evaluation: Apr 20, 2018 Time of Evaluation: 14:28 Blood Pressure Systolic: 155 0: 90 Pulse Rate: 80 Respiratory Rate: 18 Temperature (Fahrenheit): 97.4 O2 Sat by Pulse Oximetry: 100 Airway: patent Nausea: No Vomiting: No Pain Intensity: 0 Cardiopulmonary Status: stable Mental Status/LOC: patient returned to baseline Follow-up Care/Observations: per hospitalist Post-Anesthesia Complications: none Follow-up care needed: N/A Caridad Hyatt CRNA Apr 20, 2018 14:29
--- NOTE | 2018-04-20 15:30 | NUR ---
NURSE NOTES: Pt is back from EGD and colonoscopy procedures, laying in bed in left Orozco position. Denies pain, on room air with no respiratory distress. Per OR nurse, Ayana Jackson RN, pt tolerated procedure well, EGD revealed gastritis and colonoscopy revealed seven polyps, which were removed. No signs/symptoms of bleeding. Will continue to monitor pt.
--- NOTE | 2018-04-20 18:00 | Consultation ---
DATE OF CONSULTATION: 04/20/2018 NEPHROLOGY CONSULTATION CONSULTING PHYSICIAN: Zoila Parks M.D. REFERRING PHYSICIAN: Connor Rivera M.D. REASON FOR CONSULTATION: Acute versus chronic renal failure. HISTORY OF PRESENT ILLNESS: The patient is a pleasant 52-year-old female with past medical history significant for history of hypertension, history of diabetes, history of gallstone disease, and history of CAD, who was presented to [facility] after she complained of intractable nausea, vomiting, and left-sided chest pain which was radiating to left arm and associated with some tingling and numbness in the left arm. The patient upon arrival in the ER was evaluated, was found to be anemic, planned for endoscopy and colonoscopy, started on IV fluid. Also upon arrival, the patient had blood pressure of 159/74, pulse rate was 92, and patient was afebrile. The patient consequently was admitted in Med/Surg unit. I was called for management of renal disease and electrolyte imbalance. ALLERGIES: She is allergic to cephalexin. PAST MEDICAL HISTORY: Includin. Hypertension. 2. Diabetes. 3. History of VT. 4. History of GERD. 5. History of CAD. SOCIAL HISTORY: Denies any history of tobacco, alcohol, or drug use. FAMILY HISTORY: Positive for history of diabetes and high blood pressure in first-degree relatives, otherwise negative. REVIEW OF SYSTEMS: GENERAL: She complained of generalized weakness. Denied any fever, chills, or night sweats. HEAD AND NECK: Denies any dysphagia, odynophagia, blurry vision, headache, or neck stiffness. PULMONARY: No shortness of breath. No cough or sputum. CARDIOVASCULAR: Complained of left-sided chest pain associated with tingling and numbness in the left arm. It was not associated with shortness of breath or palpitations. GASTROINTESTINAL: She had nausea and vomiting. GENITOURINARY: Denies any dysuria, frequency, or hematuria. MUSCULOSKELETAL: Denies any weakness or numbness. PHYSICAL EXAMINATION: VITAL SIGNS: The patient has temperature of 98 degrees, blood pressure of 143/81, pulse rate of 83. HEAD AND NECK: No JVP. No LAD. No thyromegaly. Extraocular movement intact. Pupils are reactive to light and accommodation. LUNGS: Clear to auscultation. CARDIAC: Regular rate and rhythm. S1, S2. No murmur. No rub. ABDOMEN: Soft, nontender, and nondistended. EXTREMITIES: No edema. No clubbing. No cyanosis. LABORATORY AND DIAGNOSTIC DATA: The patient had WBC count of 8.9, hemoglobin of 11.2, hematocrit 34, platelet count of 220,000. Chemistry revealed sodium 138, potassium 3.9, chloride 107, bicarbonate 21, BUN is 20, creatinine is 1.4, glucose of 348. A1c of 10.6. Calcium of 8.4. Cholesterol of 246, HDL of 35, and LDL of 94. UA revealed specific gravity of 1.010, protein 3+, blood 1+, wbc 0, rbc 0-2. ASSESSMENT: 1. Acute renal failure. The etiology of acute renal failure is ATN due to unstable hemodynamics versus prerenal azotemia and dehydration. The patient had a history of intractable nausea, vomiting. 2. Uncontrolled diabetes with hemoglobin A1c of 10.6. 3. Hypocalcemia. 4. Dyslipidemia. 5. Uncontrolled hypertension. PLAN: Plan for the patient to obtain UA, check the random urine protein/creatinine ratio to calculate the proteinuria, check the urine sodium and creatinine to calculate fractional excretion of sodium, ultrasound of the kidney to evaluate the kidney size. I would hold Avapro at this time since the patient's kidney function has worsened. I would also consider stopping losartan. I would consider treating with endocrinology consultation for better blood glucose control. The goal of A1c for this patient is 6 to 7. At the end, I would like to thank Dr. Rivera for allowing me to participate in the care of this patient. Zoila Parks M.D. DR: Rd JOB#: [id number] CC:
--- NOTE | 2018-04-20 19:30 | NUR ---
NURSE NOTES: Report received from Daphne JAQUEZ. Pt is resting in bed in stable condition. Pt is A+Ox4. Pt is on room air and breathing is even and unlabored. No acute distress noted. Pt IV site is L FA #20g and is asymptomatic, patent, and intact and running IV fluids at rx rate. Pt noted to be ambulatory with steady gait. Bed placed in lowest position with brake engaged, side rails up x2. Call light and side table placed within reach. Will continue to monitor.
--- NOTE | 2018-04-20 19:38 | NUR ---
HAND-OFF: Report given to Kerry JAQUEZ. Pt is resting in bed in stable condition. Endorsed plan of care.
[2018-04-20] MEDS ORDERED: Levemir Flexpen SUBQ SCH (21:00)
[2018-04-20] MEDS ORDERED: Atorvastatin 80mg tab ORAL SCH (21:00)
--- NOTE | 2018-04-20 23:15 | Procedure Note ---
DATE OF PROCEDURE: 04/20/2018 NOTE: "POOR AUDIO QUALITY" SURGEON: Grey De La Rosa M.D. ANESTHESIOLOGIST: Rowena RINCON. PROCEDURE: Upper endoscopy with biopsy and colonoscopy with biopsy and snare polypectomy. ANESTHESIA: Per Rowena RINCON. INSTRUMENT: Olympus adult flexible upper endoscope and colonoscope. INDICATION: Anemia, abdominal pain, and screening colonoscopy. The procedure, risks, benefits, and possible consequences, including hemorrhage, aspiration, perforation and infection, and alternative treatments, were explained to the patient/legal guardian by Dr. Grey De La Rosa and the patient/legal guardian understood and accepted these risks. DESCRIPTION OF PROCEDURE: After informed consent was obtained and the patient was adequately sedated, Olympus upper endoscope was advanced from the mouth into the second portion of duodenum and retroflexion was performed in the stomach. The patient had evidence of diffuse gastritis. Random biopsy from antrum was obtained to rule out H. pylori infection. At this time, the upper endoscope was retrieved. The patient was turned over for colonoscopy. First, rectal exam was performed, which was normal. Then, the scope was advanced from the rectum into the cecum. Quality of prep overall was fair. Examination of the cecum was limited given there was solid stool sitting in the cecum. Throughout the colon, I would say maybe about 20% to 25% of the colonic mucosa was not examined given this prep. The patient had a total of 7 polyps in this colonoscopy examination; 3 polyps in the transverse colon, 1 in the descending, and 3 in the sigmoid. The largest polyps were in the transverse colon that roughly measured about 1 cm removed with hot snare polypectomy technique. The patient also had evidence of scattered diverticulosis in the left side of the colon. Retroflexion of the rectum showed evidence of internal hemorrhoids. SUMMARY OF FINDINGS: 1. Gastritis, status post biopsy. 2. Fair colonic prep. 3. Seven colonic polyps removed, see above for details. 4. internal hemorrhoids. RECOMMENDATIONS: Follow up biopsy results and treat accordingly. Given this quality of prep and given these number of polyps, there are more polyps in this colon, but because of prep quality, we could not pick, so I recommend the patient to have another colonoscopy in 1 year. I want to thank Dr. Rivera for this kind referral. Grey Juan C De La Rosa DR: ALANNAH JOB#: [id number] CC: Connor Rivera M.D.; Fax#: [phone]
--- NOTE | 2018-04-20 23:54 | Cardiology Progress Note ---
Assessment/Plan Assessment/Plan 1. 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 2. Colonic polyps. 3. Gastroparesis 4. Uncontrolled DM with high HbA1C 5. CKD with JERRY at 1.4, nephrology follow up. Subjective Subjective Sinus rhythm at rate of 91. Objective Last 24 Hour Vital Signs Date Time Temp Pulse Resp B/P (MAP) Pulse Ox O2 Delivery O2 Flow Rate FiO2 04/20/18 20:44 91 164/85 04/20/18 16:00 89 04/20/18 16:00 98.2 19 149/85 (106) 97 04/20/18 14:41 79 15 161/88 96 Room Air 04/20/18 14:35 97.2 78 16 163/89 96 Room Air 04/20/18 14:30 77 14 168/95 99 Nasal Cannula 3 04/20/18 14:29 80 18 100 04/20/18 14:27 84 20 100 04/20/18 14:25 78 15 155/90 100 Nasal Cannula 3 04/20/18 14:19 97.4 82 20 137/86 100 Nasal Cannula 3 04/20/18 12:00 97.3 81 17 141/78 (99) 95 04/20/18 12:00 78 04/20/18 09:12 83 143/81 04/20/18 09:12 83 143/81 04/20/18 09:00 Room Air 04/20/18 08:00 97.9 83 17 143/81 (101) 99 04/20/18 08:00 86 04/20/18 04:00 97.0 88 18 157/86 (109) 93 04/20/18 03:43 86 04/20/18 02:30 Nasal Cannula 2.0 04/20/18 00:26 145/75 04/20/18 00:00 97.3 88 20 145/75 (98) 93 Intake and Output 04/19/18 04/20/18 19:00 07:00 # Voids 1 2 Laboratory Tests Test 04/20/18 00:20 04/20/18 05:00 04/20/18 17:56 Troponin I 0.009 ng/mL (0.000-0.056) Prothrombin Time 10.7 SEC (9.30-11.50) Prothromb Time International Ratio 1.0 (0.9-1.1) Activated Partial Thromboplast Time 28 SEC (23-33) Sodium Level 138 MMOL/L (136-145) Potassium Level 3.9 MMOL/L (3.5-5.1) Chloride Level 107 MMOL/L (98-107) Carbon Dioxide Level 21 MMOL/L (21-32) Anion Gap 10 mmol/L (5-15) Blood Urea Nitrogen 20 mg/dL (7-18) H Creatinine 1.4 MG/DL (0.55-1.30) H Estimat Glomerular Filtration Rate 47.5 mL/min (>60) Glucose Level 348 MG/DL (74-106) H Hemoglobin A1c 10.6 % (4.3-6.0) H Calcium Level 8.1 MG/DL (8.5-10.1) L Triglycerides Level 246 MG/DL (30-150) H Cholesterol Level 161 MG/DL (< 200) LDL Cholesterol 94 mg/dL (<100) HDL Cholesterol 35 MG/DL (40-60) L Cholesterol/HDL Ratio 4.6 (3.3-4.4) H Urine Eosinophils None seen (NONE SEEN) Urine Random Creatinine Pending Urine Random Microalbumin Pending Urine Random Total Protein 118 MG/DL (< 11.9) H Urine Creatinine 93.9 MG/DL (30.0-125.0) Urine Microalbumin/Creatinine Ratio Pending Objective HEENT: Atraumatic , normocephalic, PERRLA. Extraocular Muscles Intact. NECK: No JVP, no carotid bruit. LUNGS: Clear to auscultation B/L. CARDIAC: Regular rate and rhythm. Normal S1, S2. No murmurs, gallops or rubs. ABDOMEN: Soft, nontender,nondistended, + BS. EXTREMITIES: No edema. No clubbing. No cyanosis. Connor Rivera MD Apr 20, 2018 23:54
[2018-04-21] VITALS: BP 134/66
--- NOTE | 2018-04-21 03:00 | History and Physical Report ---
DATE OF ADMISSION: 04/19/2018 CARDIOLOGY EVALUATION ADMITTING PHYSICIAN: Connor Rivera M.D. REASON FOR ADMISSION: Management of coronary artery disease in a patient with prior history of and the patient with nausea and chest pain. HISTORY OF PRESENT ILLNESS: The patient is a very unfortunate 52-year-old female, who presents to the hospital with complaints of left-sided chest pain for about 2 days with associated tingling in the left arm as well as a couple of days of recurrent nausea and vomiting, inability to tolerate p.o., and associated constipation. The patient states that she has not been able to tolerate p.o. Her cardiac history is significant for history of coronary artery disease, status post percutaneous coronary intervention and recent cardiac catheterization at [facility] [place] revealing chronic total occlusion of right coronary artery with evidence of left to right collaterals and no requirements for coronary artery intervention. The patient continues to have dyspnea on exertion and exertional chest pain. In the past couple of days, she has noticed diffuse abdominal discomfort with recurrent burping that according to her smells as a bad odor. PAST MEDICAL HISTORY: 1. Diabetes mellitus with uncontrolled hyperglycemia and elevated hemoglobin A1c, recently placed on Victoza in addition to her insulin. 2. History of hypertension. 3. History of coronary artery disease, status post PCI x2, with SURGERY ATTENDANT of right coronary artery and left to right collaterals. 4. History of GERD. PAST SURGICAL HISTORY: History of angioplasty and stent placement as well as cholecystectomy. SOCIAL HISTORY: No prior history of tobacco, alcohol, or illicit drug use. FAMILY HISTORY: No premature coronary artery disease in first-degree relatives. ALLERGIES: Cephalexin. REVIEW OF SYSTEMS: HEENT: Denies any headache, diplopia, or blurred vision. CONSTITUTIONAL: Denies any fever, chills, night sweats, or weight loss. CARDIOVASCULAR: Chest pain as mentioned above with associated shortness of breath on exertion. Denies any PND, orthopnea, leg swelling, or syncope. PULMONARY: Denies any cough, hemoptysis, or wheezing. GASTROINTESTINAL: Diffuse abdominal pain, nausea, vomiting, inability to tolerate p.o., but no bleeding. GENITOURINARY: Denies any hematuria, dysuria, incontinence. NEUROLOGIC: Denies any motor dysfunction, sensory deficit, or altered speech. MEDICATIONS: List of medications at home includes amlodipine 10 mg p.o. daily, aspirin 81 mg p.o. daily, atorvastatin 80 mg p.o. nightly, chlorthalidone 25 mg p.o. daily, vitamin D 2000 units weekly, gabapentin 300 mg 3 times a day, insulin Lantus 40 units subcutaneous at bedtime, insulin Humalog 16 units subcutaneous 3 times a day, isosorbide mononitrate 30 mg p.o. daily, Victoza 1.8 mg subcutaneous daily, metoprolol 50 mg p.o. twice daily, Brilinta 90 mg p.o. daily, valsartan 320 mg p.o. daily, and Jardiance 25 mg daily. PHYSICAL EXAMINATION: VITAL SIGNS: Blood pressure at the time of arrival to the hospital was 159/76, pulse of 99, respirations 16, O2 saturation 99% on room air, and temperature 98.2 degrees Fahrenheit. GENERAL: This is a very pleasant 52-year-old female, in no apparent respiratory distress. Alert and oriented x4. HEENT: Atraumatic and normocephalic. Anicteric. Pupils are equal, round, and reactive to light and accommodation. Extraocular movements are intact. NECK: JVP less than 5 cm. No carotid bruit. Carotid upstrokes 2+ bilaterally. CARDIOVASCULAR SYSTEM: Normal S1, S2. Regular rate and rhythm. No murmurs, gallops, or rubs. PMI is at fourth intercostal space in the midclavicular line. LUNGS: Clear to auscultation bilaterally. ABDOMEN: Diffusely tender, but increased bowel sounds or has hyperactive bowel sounds. No hepatosplenomegaly. EXTREMITIES: No evidence of edema, clubbing, or cyanosis. LABORATORY FINDINGS: WBC 8.9, hemoglobin 11.2, hematocrit 34.8, and platelet count is 222,000. Sodium 138, potassium 4.3, chloride 105, bicarbonate 23, BUN of 21, creatinine 1.3, glucose 255, calcium 9.0. Troponin I x2, negative. ProBNP was 650, now this is 215. Lipid panel, triglycerides 246, cholesterol 161, LDL 94, HDL 35. Toxicology showed positive benzodiazepines. INR was 1.0. Chest x-ray showed no acute cardiopulmonary disease. CT of abdomen and pelvis showed no definite acute abnormalities, colonic diverticulosis with no diverticulitis, prior cholecystectomy, and low-attenuation left lower lobe lesion too small to characterize, possible simple cyst versus biliary hematoma, recommend followup in 12 months. ASSESSMENT AND PLAN: The patient is a very unfortunate 52-year-old lady, who is seen in cardiology consultation. 1. Accelerated hypertension. The patient requires to be on a combination of amlodipine, perhaps addition of metoprolol, and irbesartan. We will continue monitoring blood pressure throughout this stay. 2. Atypical chest pain. Acute myocardial infarction is ruled out. The patient had recently cardiac catheterization at [facility] in [place] with evidence of chronic total occlusion of right coronary artery, but with evidence of [id number] collateralization. Previously implanted stents were patent. Continue dual oral antiplatelet therapy including aspirin and Brilinta. Brilinta requires to be on twice-daily regimen. The patient will also requires to be on high-intensity statin with goal of LDL below 70 mg/dL. 3. History of diabetes mellitus, uncontrolled, on combination of insulin and Victoza. We will continue the patient on a DPP-4 inhibitors as well. She may require SGLT2 inhibitors as well. This can be done in an outpatient setting. 4. Diffuse abdominal pain with history of diverticulosis, questionable colitis. The patient is scheduled for upper and lower endoscopy by Dr. De La Rosa. 5. History of hyperlipidemia. The patient will continue with atorvastatin. I would like to thank Dr. Parks and Dr. De La Rosa for co-managing this patient with me. Connor Rivera M.D. DR: Maria Antonia JOB#: [id number] CC: DEBORAH
[2018-04-21 04:00] VITALS: BP 138/72
[2018-04-21] MEDS: D5 1/2NS 1,000 ML IV SCH (04:00)
[2018-04-21] MEDS: NovoLOG Insulin Flexpen SUBQ SCH ×2 (06:30→12:07)
[2018-04-21 07:18] LABS: BASOPHILS % (AUTO) 0.8 % (0.0-2.0); EOSINOPHILS % (AUTO) 0.8 % (0.0-3.0); HEMATOCRIT 31.1 % (37.0-47.0); LYMPHOCYTES % (AUTO) 33.3 % (20.0-45.0); MEAN CORPUSCULAR VOLUME 92 FL (80-99); MONOCYTES % (AUTO) 6.2 % (1.0-10.0); NEUTROPHILS % (AUTO) 58.9 % (45.0-75.0); PLATELET COUNT 210 K/UL (150-450); RED CELL DISTRIBUTION WIDTH 13.5 % (11.6-14.8); WHITE BLOOD COUNT 8.1 K/UL (4.8-10.8)
[2018-04-21 07:32] LABS: ANION GAP 5 mmol/L (5-15); BLOOD UREA NITROGEN 17 mg/dL (7-18); CALCIUM 9.1 MG/DL (8.5-10.1); CARBON DIOXIDE 29 MMOL/L (21-32); CHLORIDE 110 MMOL/L (98-107); CREATININE 1.1 MG/DL (0.55-1.30); POTASSIUM 4.1 MMOL/L (3.5-5.1); SODIUM 144 MMOL/L (136-145)
[2018-04-21 08:00] VITALS: BP 134/71
--- NOTE | 2018-04-21 08:15 | NUR ---
NURSE NOTES: Received patient A/A/Ox4, in bed with HOB elevated to alleviate ventilation. no acute distress noted. tolerated food intake, no c/o n/v. denies of pain/discomfort. siderails are up x3. bed in the lowest position possible. call light is within reach. will cont to monitor.
[2018-04-21] MEDS: Irbesartan 150mg tablet ORAL SCH (08:37)
[2018-04-21] MEDS: Metoprolol Tartrate 50mg tab ORAL SCH (08:38)
[2018-04-21] MEDS: Imdur 30mg tab ORAL SCH (08:38)
[2018-04-21] MEDS: Heparin 5000 units/ml inj SUBQ SCH (08:41)
--- NOTE | 2018-04-21 11:01 | NUR ---
HAND-OFF: Report given to Kimberly TUCKER. Pt resting in bed in stable condition. No acute distress noted. Endorsed plan of care.
--- NOTE | 2018-04-21 11:20 | Cardiology Progress Note ---
Assessment/Plan Assessment/Plan 1. 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 Stable. 2. Colonic polyps, s/p removal, follow with Dr. Zhong. 3. Gastroparesis 4. Uncontrolled DM with high HbA1C. Continue insulin and Victoza, follow with endocrine specialist. 5. JERRY, resolved, follow up with nephrology. 6. DC home today with home [facility]. Subjective Subjective Sinus rhythm at rate of 83. No chest pain or SOB. Objective Last 24 Hour Vital Signs Date Time Temp Pulse Resp B/P (MAP) Pulse Ox O2 Delivery O2 Flow Rate FiO2 04/21/18 09:00 Room Air 04/21/18 08:38 83 134/71 04/21/18 08:38 134/71 04/21/18 08:37 134/71 04/21/18 08:37 83 134/71 04/21/18 08:00 97.9 83 20 134/71 (92) 100 04/21/18 08:00 85 04/21/18 04:00 73 04/21/18 04:00 98.0 80 18 138/72 (94) 97 04/21/18 00:00 79 04/21/18 00:00 98.1 70 18 134/66 (88) 96 04/20/18 21:00 Room Air 04/20/18 20:44 91 164/85 04/20/18 20:00 98.1 91 19 164/85 (111) 96 04/20/18 20:00 94 04/20/18 16:00 89 04/20/18 16:00 98.2 19 149/85 (106) 97 04/20/18 14:41 79 15 161/88 96 Room Air 04/20/18 14:35 97.2 78 16 163/89 96 Room Air 04/20/18 14:30 77 14 168/95 99 Nasal Cannula 3 04/20/18 14:29 80 18 100 04/20/18 14:27 84 20 100 04/20/18 14:25 78 15 155/90 100 Nasal Cannula 3 04/20/18 14:19 97.4 82 20 137/86 100 Nasal Cannula 3 04/20/18 12:00 97.3 81 17 141/78 (99) 95 04/20/18 12:00 78 Intake and Output 04/20/18 04/21/18 18:59 06:59 Intake Total 1130 ml Output Total 0 ml Balance 1130 ml Intake IV Total 550 ml Other 580 ml Output Estimated Blood Loss 0 ml # Voids 1 # Bowel Movements 2 1 Laboratory Tests Test 04/20/18 17:56 04/21/18 06:30 Urine Eosinophils None seen (NONE SEEN) Urine Random Creatinine Pending Urine Random Microalbumin Pending Urine Random Total Protein 118 MG/DL (< 11.9) H Urine Creatinine 93.9 MG/DL (30.0-125.0) Urine Microalbumin/Creatinine Ratio Pending White Blood Count 8.1 K/UL (4.8-10.8) Red Blood Count 3.40 M/UL (4.20-5.40) L Hemoglobin 10.0 G/DL (12.0-16.0) L Hematocrit 31.1 % (37.0-47.0) L Mean Corpuscular Volume 92 FL (80-99) Mean Corpuscular Hemoglobin 29.3 PG (27.0-31.0) Mean Corpuscular Hemoglobin Concent 32.0 G/DL (32.0-36.0) Red Cell Distribution Width 13.5 % (11.6-14.8) Platelet Count 210 K/UL (150-450) Mean Platelet Volume 8.5 FL (6.5-10.1) Neutrophils (%) (Auto) 58.9 % (45.0-75.0) Lymphocytes (%) (Auto) 33.3 % (20.0-45.0) Monocytes (%) (Auto) 6.2 % (1.0-10.0) Eosinophils (%) (Auto) 0.8 % (0.0-3.0) Basophils (%) (Auto) 0.8 % (0.0-2.0) Sodium Level 144 MMOL/L (136-145) Potassium Level 4.1 MMOL/L (3.5-5.1) Chloride Level 110 MMOL/L (98-107) H Carbon Dioxide Level 29 MMOL/L (21-32) Anion Gap 5 mmol/L (5-15) Blood Urea Nitrogen 17 mg/dL (7-18) Creatinine 1.1 MG/DL (0.55-1.30) Estimat Glomerular Filtration Rate > 60 mL/min (>60) Glucose Level 107 MG/DL (74-106) #H Calcium Level 9.1 MG/DL (8.5-10.1) Objective HEENT: Atraumatic , normocephalic, PERRLA. Extraocular Muscles Intact. NECK: No JVP, no carotid bruit. LUNGS: Clear to auscultation B/L. CARDIAC: Regular rate and rhythm. Normal S1, S2. No murmurs, gallops or rubs. ABDOMEN: Soft, nontender,nondistended, + BS. EXTREMITIES: No edema. No clubbing. No cyanosis. Connor Rivera MD Apr 21, 2018 11:20
[2018-04-21 12:00] VITALS: BP 145/73
--- NOTE | 2018-04-21 13:00 | NUR ---
NURSE NOTES: discharge home with home health [facility] and instructions. removed IV heplock. personal belongings noted. no acute resp distress. No c/o pain/discomfort noted. in stable condition. verified home address. friend, Xavi provided her ride home. accompanied patient outside manager retirement.
--- NOTE | 2018-04-21 15:05 | Physician Query ---
--------- THIS DOCUMENT IS A PERMANENT PART OF THE MEDICAL RECORD --------- PLEASE COMPLETE THE DOCUMENT BEFORE SIGNING Dear Dr. Sharath RIVERA Date 04/21/18 Body Component Engineer/CDS' Name Harper RIVERO Body Component Engineer/CDS Phone#: Exercise your independent professional judgment when responding to query. Questions asked do not imply particular answer is desired or expected. We greatly appreciate your clarification on this issue. 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 Rivera's PN on "Accelerated hypertension. The patient requires to be on a combination of amlodipine" - documented in H&P Please document the suspected etiology of Chest Pain: Etiology - non-cardiac [] Anxiety []Pleurisy [] Cancer []Pneumonia, type [] Costochondritis []Pneumothorax [] GERD/Esophagitis []Pulmonary embolism [] Unable to determine []Other: Condition Present on Admission: [] Yes [] No []Clinically Undeterminable Please also document in your Progress Notes and/or Discharge Summary and indicate if the condition was present on admission. BENNETT RIVERA M.D. DATE & TIME [facility]
--- NOTE | 2018-04-21 23:15 | Discharge Summary ---
DATE OF ADMISSION: 04/19/2018 DATE OF DISCHARGE: 04/21/2018 ADMITTING DIAGNOSES: 1. Intractable nausea and vomiting. 2. Uncontrolled diabetes. 3. Hypertension. 4. Acute renal failure. 5. History of GERD. 6. Hypocalcemia. 7. Dyslipidemia. HISTORY OF PRESENT ILLNESS/COURSE OF HOSPITAL ADMISSION: The patient is a 52-year-old female with past medical history significant for hypertension, dyslipidemia, and history of uncontrolled diabetes, who presented to the emergency room complaining of intractable nausea and vomiting for the past few days. The patient was found to have an acute renal failure and started on hydration. The patient was seen by GI doctor, Dr. Grey De La Rosa, had a colonoscopy and endoscopy done, which revealed small polyp, which was removed during colonoscopy and gastritis and gastroparesis. The patient was started on PPI. She was seen by Nephrology for evaluation of acute renal failure. test was ordered. The patient post procedure did well. She was able to tolerate p.o. and going to be discharged home today. We will have her follow up with primary medical doctor, Dr. Connor Rivera. CONDITION AT THE TIME OF DISCHARGE: Stable. DISPOSITION: Home with home health. DIET: A 2 grams sodium, 1800 ADA diet. DISCHARGE MEDICATIONS: Medication reconciliation was reviewed. Procedure was done on 04/20/2018. Please refer to procedure note by Dr. De La Rosa. ACTIVITIES: As tolerated. LABORATORY AND DIAGNOSTIC DATA: Labs revealed WBC count of 8.1, hemoglobin of 10, hematocrit of 31, and platelet count of 210,000. Chemistry revealed sodium 144, potassium 4.1, 110 chloride, 29 bicarb, BUN of 17, creatinine of 1.1. Glucose dropped from 348 to 106 and creatinine dropped from 1.4 to 1.1. Calcium increased from 8.1 to 9.1. FOLLOWUP: Followup is going to be with Dr. Rivera. Zoila Parks M.D. DR: GENOVEVA JOB#: [id number] CC:
[2018-04-26] MEDS ORDERED: Vitamin D 1000 IU Tab ORAL SCH (09:00)
--- NOTE | 2018-04-28 20:27 | Cardiology Report ---
APPROVED REPORT EKG Measurement Heart [id number] [id number] Normal sinus rhythm Minimal voltage criteria for LVH, may be normal variant Nonspecific T wave abnormality Abnormal ECG
--- NOTE | 2018-05-03 09:27 | Discharge Summary ---
Discharge Summary Discharge Summary _ Addendum: Final diagnoses: 1. 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 Stable. 2. Colonic polyps, s/p removal 3. Gastroparesis 4. Uncontrolled DM with high HbA1C. 5. Gastritis, status post biopsy. 6. Internal hemorrhoids. 7. Acute renal failure. The etiology of acute renal failure is ATN due to unstable hemodynamics versus prerenal azotemia and dehydration. The patient had a history of intractable nausea, vomiting. 8. Hypocalcemia. 9. Dyslipidemia. 10 Uncontrolled hypertension I have been assigned to complete a DC summary on this account, I was not involved with the patient's management. Svetlana Dejesus NP May 03, 2018 09:27
== END 2018-04-21 13:08 | disposition home health service (06) | DRG 391 ==
LOC: EMR 14:00 → 2E 16:05 → EDBEDREQ 17:36
PROC: 0DBN8ZZ Excision of Sigmoid Colon, Via Natural or Artificial Opening Endoscopic (ICD-10-PCS; principal; 2018-04-20 13:34)
PROC: 0DBL8ZZ Excision of Transverse Colon, Via Natural or Artificial Opening Endoscopic (ICD-10-PCS; principal; 2018-04-20 13:34)
PROC: 0DB78ZX Excision of Stomach, Pylorus, Via Natural or Artificial Opening Endoscopic, Diagnostic (ICD-10-PCS; principal; 2018-04-20 13:34)
PROC: 0DBM8ZZ Excision of Descending Colon, Via Natural or Artificial Opening Endoscopic (ICD-10-PCS; principal; 2018-04-20 13:34)
DX: K21.9 Gastro-esophageal reflux disease without esophagitis (principal); N17.0 Acute kidney failure with tubular necrosis; R07.89 Other chest pain; Z88.1 Allergy status to other antibiotic agents; E11.43 Type 2 diabetes mellitus with diabetic autonomic (poly)neuropathy; K31.84 Gastroparesis; E11.65 Type 2 diabetes mellitus with hyperglycemia; E78.5 Hyperlipidemia, unspecified; E83.51 Hypocalcemia; D64.9 Anemia, unspecified; I25.2 Old myocardial infarction; I25.10 Atherosclerotic heart disease of native coronary artery without angina pectoris; Z79.4 Long term (current) use of insulin; Z95.5 Presence of coronary angioplasty implant and graft; Z90.49 Acquired absence of other specified parts of digestive tract; K63.5 Polyp of colon; K64.8 Other hemorrhoids; E11.22 Type 2 diabetes mellitus with diabetic chronic kidney disease; I12.9 Hypertensive chronic kidney disease with stage 1 through stage 4 chronic kidney disease, or unspecified chronic kidney disease; N18.9 Chronic kidney disease, unspecified; K29.70 Gastritis, unspecified, without bleeding
CPT/HCPCS: 36415; 71045; 74177; 80048; 80053; 80061; 80307; 81003; 82043; 82044; 82550; 82553; 82570; 82962; 83036; 83690; 83880; 84484; 85025; 85610; 85730; 89050; 93005; 94003; 94150; 96361; 96374; 96375; 99285; J1815; S5561

== ENCOUNTER 2018-06-05 09:03 | Outpatient (CLI) | payer MEDICARE, OTHER ==
[~2018-06-05 09:03] MED LIST: AMLODIPINE BESY10 MG ORAL; ASPIR 8181 MG ORAL; ATORVASTATIN CA40 MG ORAL; ATORVASTATIN CA80 MG ORAL; BRILINTA90 MG PO; CHLORTHALIDONE25 MG ORAL; DIOVAN320 MG ORAL; GABAPENTIN300 MG ORAL; HUMALOG 75/255 UNIT1 SUBQ; ISOSORBIDE MONO20 MG PO; ISOSORBIDE MONO30 M1 PO; Jardiance ORAL; LANTUS SOL100 UNIT/1 SUBQ; METOPROLOL TART50 M1 ORAL; VICTOZA 2-0.6 MG/0.1 SUBQ; VITAMIN D1000 UNI1 ORAL
--- NOTE | 2018-06-05 10:25 | General Progress Note ---
Assessment/Plan Problem List: (1) Colon polyps ICD Codes: K63.5 - Polyp of colon SNOMED: 09347825 (2) Constipation ICD Codes: K59.00 - Constipation, unspecified SNOMED: 24675745 (3) Helicobacter heilmannii gastritis ICD Codes: K29.60 - Other gastritis without bleeding; B96.81 - Helicobacter pylori [H. pylori] as the cause of diseases classified elsewhere SNOMED: 763796217 (4) Nausea & vomiting ICD Codes: R11.2 - Nausea with vomiting, unspecified SNOMED: 77060002 (5) Anemia ICD Codes: D64.9 - Anemia, unspecified SNOMED: 271048594 Assessment/Plan treat for HP, pylori linzess 145 RTC 3 monts for BT repeat colonoscopy in one year Subjective ROS Limited/Unobtainable: Yes Allergies: Coded Allergies: CEPHALEXIN (Verified Allergy, Unknown, 04/19/18) Objective General Appearance: alert EENT: normal ENT inspection Neck: supple Cardiovascular: normal rate Respiratory/Chest: lungs clear Abdomen: normal bowel sounds, non tender, soft Extremities: non-tender Grey De La Rosa MD Jun 05, 2018 10:25
[2018-06-05] MEDS ORDERED: NORCO 10-325 T1 EACH ORAL (13:04)
[2018-06-05] MEDS ORDERED: DIAZEPAM10 MG ORAL (13:04)
[2018-06-05] MEDS ORDERED: SENNA8.6 M2 PO (13:04)
[2018-06-05] MEDS ORDERED: CARISOPRODOL350 MG ORAL (13:04)
[2018-06-05 13:06] VITALS: BP 140/78
== END 2018-06-05 15:29 | disposition home or self-care (01) ==
LOC: PAN 09:03
DX: K63.5 Polyp of colon (principal); K59.00 Constipation, unspecified; K29.60 Other gastritis without bleeding; R11.2 Nausea with vomiting, unspecified; D64.9 Anemia, unspecified; Z88.8 Allergy status to other drugs, medicaments and biological substances

== ENCOUNTER 2018-09-18 08:52 | Outpatient (CLI) | payer MEDICARE, OTHER ==
[~2018-09-18 08:52] MED LIST changes: +CARISOPRODOL350 MG ORAL; +DIAZEPAM10 MG ORAL; +NORCO 10-325 T1 EACH ORAL; +SENNA8.6 M2 PO
--- NOTE | 2018-09-18 09:32 | GI Progress Note ---
Assessment/Plan Problems: (1) Anemia ICD Codes: D64.9 - Anemia, unspecified SNOMED: 096149046 (2) Nausea & vomiting ICD Codes: R11.2 - Nausea with vomiting, unspecified SNOMED: 37644907 (3) Colon polyps ICD Codes: K63.5 - Polyp of colon SNOMED: 53952981 (4) Helicobacter heilmannii gastritis ICD Codes: K29.60 - Other gastritis without bleeding; B96.81 - Helicobacter pylori [H. pylori] as the cause of diseases classified elsewhere SNOMED: 594930495 (5) Constipation ICD Codes: K59.00 - Constipation, unspecified SNOMED: 26023893 Status: stable, unchanged Status Narrative Discussed with Dr. De La Rosa. Assessment/Plan had recent admission to [facility] negative CT noted recent history Mar 2018 EGD/colonoscopy noted with gastritis, 7 colonic polyps. Poor prep. will repeat endoscopy / colonoscopy due to the patients persistent pain - CLD & (Nulytely/Suprep/Movi-Prep) prep instructions given and acknowledged by patient. - NPO @ MN day prior procedure explained, hold lantus day prior procedure. Will follow with additional recs post procedure. Seen with Dr. De La Rosa. Thank you for this patient referral. The patient was seen and examined at bedside and all new and available data was reviewed in the patients chart. I agree with the above findings, impression and plan. (Patient seen earlier today. Signature stamp does not reflect patient encounter time.). - Grey De La Rosa MD Subjective Subjective patient still has c/o of severe abdominal pain poor PO intake she is afraid to eat due to the pain denies any diarrhea has generalized tenderness to all quadrants s/p H. Pylori tx Objective General Appearance: WD/WN, no apparent distress, alert Cardiovascular: normal rate Respiratory/Chest: normal breath sounds, no respiratory distress Abdominal Exam: normal bowel sounds, non tender, soft Extremities: normal range of motion, non-tender Josy Driscoll MOLDING ENGINEER Sep 18, 2018 09:32
[2018-09-18 09:53] VITALS: BP 133/74
[2018-09-18] MEDS ORDERED: BENAZEPRIL HCL20 MG ORAL (09:53)
[2018-09-18] MEDS ORDERED: TRULICITY0.75 MG/0. SQ (09:53)
== END 2018-09-18 10:52 | disposition home or self-care (01) ==
LOC: PAN 08:52
DX: D64.9 Anemia, unspecified (principal); R11.2 Nausea with vomiting, unspecified; K29.60 Other gastritis without bleeding; K59.00 Constipation, unspecified
CPT/HCPCS: 99212

== ENCOUNTER 2018-09-24 09:20 | Day surgery (SDC) | payer MEDICARE, OTHER ==
[~2018-09-24] VITALS: Ht 160 cm; Wt 68.0 kg
[2018-09-24] VITALS (8 sets, daily range): BP systolic 124–165; BP diastolic 66–87
--- NOTE | 2018-09-24 06:32 | Anethesia Preoperative Eval ---
Anesthesia Pre-op PMH/ROS General Date of Evaluation: Sep 24, 2018 Time of Evaluation: 06:30 Anesthesiologist: michelle ASA Score: ASA 3 Mallampati Score Class I : Soft palate, uvula, fauces, pillars visible Class II: Soft palate, uvula, fauces visible Class III: Soft palate, base of uvula visible Class IV: Only hard plate visible Mallampati Classification: Class II Surgeon: shahana Diagnosis: gerd, diverticulitis Surgical Procedure: egd/colonoscopy Anesthesia History: none Social History: current smoker Family History: no anesthesia problems Allergies: Coded Allergies: CEPHALEXIN (Verified Allergy, Severe, itching, 09/24/18) Medications: see eMAR Patient NPO?: Yes Past Medical History Cardiovascular: Reports: HTN, [place] - x2, coronary stent, other Gastrointestinal/Genitourinary: Reports: other - gastritis, h. 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 Exam Physician Exam Last Vital Signs Date Time Temp Pulse Resp B/P (MAP) Pulse Ox O2 Delivery O2 Flow Rate FiO2 09/24/18 10:19 Room Air 09/24/18 09:55 98.6 91 18 144/83 99 Constitutional: NAD Neurologic: CN 2-12 intact Cardiovascular: RRR Respiratory: CTA Gastrointestinal: S/NT/ND Airway Exam Mallampati Score: Class II MO: limited Neck: short TMD: 2fb ROM: limited Anesthesia Pre-op A/P Studies Pre-op Studies: EKG - nsr, nssttwa Risk Assessment & Plan Assessment: asa3 Plan: mac Status Change Before Surgery: No Pre-Antibiotics Drug: Juanita Chan MD Sep 24, 2018 06:32
[~2018-09-24 09:20] MED LIST changes: +Atropine Inj 1mg/10ml Syr IV PRN; +BENAZEPRIL HCL20 MG ORAL; +DiphenhydrAMINE 50mg/ml Inj IVP PRN; +Midazolam 2mg/2ml Inj IVP PRN; +TRULICITY0.75 MG/0. SQ; +fentaNYL 100 mcg/2 mL IV PRN
--- NOTE | 2018-09-24 10:00 | Pre-Procedure Note/Attestation ---
Pre-Procedure Note/Attestation Complete Prior to Procedure Planned Procedure: not applicable Procedure Narrative: coloscopy Indications for Procedure Pre-Operative Diagnosis: screening Attestation I attest that I discussed the nature of the procedure; its benefits; risks and complications; and alternatives (and the risks and benefits of such alternatives ), prior to the procedure, with the patient (or the patient's legal small business sales representative). I attest that, if there was a reasonable possibility of needing a blood transfusion, the patient (or the patient's legal small business sales representative) was given the [facility] [facility] standardized written summary, pursuant to the [place] Blood Safety Act ([place] Health and Safety Code # 1645, as amended). I attest that I re-evaluated the patient just prior to the surgery and that there has been no change in the patient's H&P, except as documented below: Grey De La Rosa MD Sep 24, 2018 10:00
--- NOTE | 2018-09-24 10:00 | Short Stay Surgery H&P ---
History of Present Illness History of Present Illness Chief Complaint see recent office note HPI Jocelyn Pennington is a 53 year old female who was admitted on for Diverticulitis ,Gerd Patient History Allergies: Coded Allergies: CEPHALEXIN (Verified Allergy, Severe, itching, 09/24/18) Medication History Scheduled Aspirin* (Aspir 81*), 81 MG ORAL DAILY, (Reported) Atorvastatin Calcium* (Lipitor*), 80 MG ORAL BEDTIME, (Reported) Benazepril Hcl* (Benazepril Hcl*), 20 MG ORAL DAILY, (Reported) Carisoprodol* (Carisoprodol*), 350 MG ORAL BID, (Reported) Chlorthalidone* (Chlorthalidone*), 25 MG ORAL DAILY, (Reported) Cholecalciferol (Vitamin D3)* (Vitamin D*), 2,000 UNITS ORAL QWEEK, (Reported) Dulaglutide (Trulicity), 0.75 MG SQ QWEEK, (Reported) Gabapentin* (Gabapentin*), 300 MG ORAL THREE TIMES A DAY, (Reported) Insulin Glargine (Lantus), 35 UNITS SUBQ BEDTIME, (Reported) Insulin Human Lispro (Humalog), 16 UNITS SUBQ TID, (Reported) Isosorbide Mononitrate (Isosorbide Mononitrate Er), 30 MG PO DAILY, (Reported) Metoprolol Tartrate* (Metoprolol Tartrate*), 50 MG ORAL EVERY 12 HOURS, ( Reported) [Jardiance ], 25 MG ORAL DAILY, (Reported) Scheduled PRN Hydrocodone Bit/Acetaminophen 10-325* ([place] 10-325*), 1 TAB ORAL Q6H PRN for For Pain, (Reported) Discontinued Medications Amlodipine Besylate* (Amlodipine Besylate*), 10 MG ORAL DAILY, (Reported) Discontinued Reason: MD discontinued med Diazepam* (Diazepam*), 10 MG ORAL Q6H PRN for ANXIETY, (Reported) Discontinued Reason: MD discontinued med Liraglutide (Victoza 2-Tien), 1.8 MG SUBQ DAILY, (Reported) Discontinued Reason: MD discontinued med Sennosides (Senna), 8.6 MG PO PRN, (Reported) Discontinued Reason: Pt stopped taking med Ticagrelor* (Brilinta*), 90 MG PO DAILY, (Reported) Discontinued Reason: MD discontinued med Valsartan (Diovan), 320 MG ORAL DAILY, (Reported) Discontinued Reason: MD discontinued med Physical Exam Vital Signs Last Vital Signs Date Time Temp Pulse Resp B/P (MAP) Pulse Ox O2 Delivery O2 Flow Rate FiO2 09/24/18 09:55 98.6 91 18 144/83 99 Room Air Plan Attestation Are the patient's medical conditions optimized for surgery? Grey De La Rosa MD Sep 24, 2018 10:00
[2018-09-24] MEDS ORDERED: Propofol 200mg/20ml IV ONE (11:00)
[2018-09-24] MEDS ORDERED: Lidocaine 1% MPF 10mg/ml 5ml ONE (11:00)
--- NOTE | 2018-09-24 11:48 | Endoscopy Procedure Note ---
Endoscopy Procedure Note General Indication for Procedure: abd pain Procedures Performed: EGD, colonoscopy Operative Findings/Diagnosis: 5 colon polyps Specimen: yes Pt Tolerated Procedure Well: Yes Estimated Blood Loss: none Anesthesia Anesthesiologist: michelle Anesthesia: MAC Inserted Devices Implant(s) used?: No Quality Quality of Bowel Preparation: Good Did scope reach the cecum?: Yes Was there any complications?: No GI Core Measures 50 yrs or older w/o bx or poly: No 10yrs. F/U recommended: Yes If not recommended, why?: Above average risk 18 years or older w/prev. colo: Yes <3yrs. since last colonoscopy: Yes Med reason:<3 yrs.: Incomplete Colonoscopy Grey De La Rosa MD Sep 24, 2018 11:48
--- NOTE | 2018-09-24 12:09 | Immediate Post-Op Evaluation ---
Immediate Post-Op Evalulation Immediate Post-Op Evalulation Procedure: egd/colonoscopy w/bx Date of Evaluation: Sep 24, 2018 Time of Evaluation: 12:06 IV Fluids: 450ml 0.9ns Blood Products: none Estimated Blood Loss: negligible Blood Pressure Systolic: 124 Blood Pressure Diastolic: 86 Pulse Rate: 101 Respiratory Rate: 18 O2 Sat by Pulse Oximetry: 100 Temperature (Fahrenheit): 97.4 Pain Score (1-10): 0 Nausea: No Vomiting: No Complications none Patient Status: awake, reacts, patent Hydration Status: adequate Drug: Juanita Chan MD Sep 24, 2018 12:09
--- NOTE | 2018-09-24 12:10 | 48 Hour Post Anesthesia Eval ---
Post Anesthesia Evaluation Procedure: egd/colonoscopy w/bx Date of Evaluation: Sep 24, 2018 Time of Evaluation: 12:09 Blood Pressure Systolic: 138 0: 86 Pulse Rate: 98 Respiratory Rate: 18 Temperature (Fahrenheit): 97.4 O2 Sat by Pulse Oximetry: 99 Airway: patent Nausea: No Vomiting: No Pain Intensity: 0 Hydration Status: adequate Cardiopulmonary Status: stable Mental Status/LOC: patient returned to baseline Post-Anesthesia Complications: none Follow-up care needed: N/A Juanita Johnson MD Sep 24, 2018 12:10
[2018-09-24 12:26] LABS: BASOPHILS % (AUTO) 0.9 % (0.0-2.0); EOSINOPHILS % (AUTO) 0.8 % (0.0-3.0); HEMATOCRIT 33.4 % (37.0-47.0); HEMOGLOBIN 10.6 G/DL (12.0-16.0); LYMPHOCYTES % (AUTO) 35.2 % (20.0-45.0); MEAN CORPUSCULAR VOLUME 93 FL (80-99); MONOCYTES % (AUTO) 7.1 % (1.0-10.0); PLATELET COUNT 279 K/UL (150-450); RED BLOOD COUNT 3.58 M/UL (4.20-5.40); RED CELL DISTRIBUTION WIDTH 13.2 % (11.6-14.8); WHITE BLOOD COUNT 9.9 K/UL (4.8-10.8)
[2018-09-24 12:39] LABS: ALANINE AMINOTRANSFERASE 14 U/L (12-78); ALBUMIN 3.5 G/DL (3.4-5.0); ALBUMIN/GLOBULIN RATIO 0.9 (1.0-2.7); ALKALINE PHOSPHATASE 112 U/L (46-116); AMYLASE 81 U/L (25-115); ANION GAP 15 mmol/L (5-15); ASPARTATE AMINO TRANSFERASE 11 U/L (15-37); BILIRUBIN,TOTAL 0.2 MG/DL (0.2-1.0); BLOOD UREA NITROGEN 24 mg/dL (7-18); CALCIUM 9.4 MG/DL (8.5-10.1); CARBON DIOXIDE 22 MMOL/L (21-32); CHLORIDE 109 MMOL/L (98-107); CREATININE 1.3 MG/DL (0.55-1.30); POTASSIUM 4.2 MMOL/L (3.5-5.1); SODIUM 146 MMOL/L (136-145)
--- NOTE | 2018-09-24 16:30 | Procedure Note ---
DATE OF PROCEDURE: 09/24/2018 SURGEON: Grey De La Rosa M.D. PROCEDURE: Upper endoscopy with biopsy and colonoscopy with snare polypectomy and biopsy. ANESTHESIA: Per Dr. Blevins. INSTRUMENT: Olympus adult flexible upper endoscope and colonoscope. INDICATION: Abdominal pain, poor colonoscopy examination recently. REASON FOR PROCEDURE: The procedure, risks, benefits, and possible consequences, including hemorrhage, aspiration, perforation and infection, and alternative treatments, were explained to the patient/legal guardian by Dr. Grey De La Rosa and the patient/legal guardian understood and accepted these risks. PROCEDURE IN DETAIL: After informed consent was obtained and the patient was adequately sedated, Olympus upper endoscope was advanced from mouth to the second portion of the duodenum and retroflexion was performed in the stomach. The patient had evidence of diffuse gastritis. Random biopsy from antrum and body was obtained to rule out H. pylori infection. GE junction was found to be about 35 cm from the incisors. At this time, the upper endoscope was retrieved and the patient was turned over for colonoscopy. First, rectal examination was performed, which was positive for internal hemorrhoids. Then, the scope was advanced from the rectum into the cecum documented by appendiceal orifice, ileocecal valve, and right upper quadrant palpation. Quality of prep was very good. The patient had one sessile polyp in the proximal ascending colon measured roughly 1 cm, was removed with the hot snare polypectomy technique in piecemeal fashion. The patient had also four more polyps, one in the transverse and three in sigmoid. They were small polyps removed with the cold biopsy forceps technique. The patient has evidence of moderate diverticulosis in the left colon. Retroflexion of rectum showed evidence of internal hemorrhoids. SUMMARY OF FINDINGS: 1. Gastritis, status post biopsy. 2. Total of 5 polyps removed. See above for details. 3. Diverticulosis. 4. Internal hemorrhoids. RECOMMENDATIONS: 1. Follow path. 2. Recommend repeat colonoscopy in 3 years. Grey De La Rosa M.D. DR: TRUDY JOB#: [id number] CC:
== END 2018-09-24 13:30 | disposition home or self-care (01) ==
LOC: GAS 09:20
DX: R10.9 Unspecified abdominal pain (principal); K29.50 Unspecified chronic gastritis without bleeding; K63.5 Polyp of colon; K57.90 Diverticulosis of intestine, part unspecified, without perforation or abscess without bleeding; K64.8 Other hemorrhoids; K21.9 Gastro-esophageal reflux disease without esophagitis; Z79.82 Long term (current) use of aspirin; Z79.4 Long term (current) use of insulin; Z79.899 Other long term (current) drug therapy; Z88.8 Allergy status to other drugs, medicaments and biological substances; I25.2 Old myocardial infarction; Z95.5 Presence of coronary angioplasty implant and graft; I10 Essential (primary) hypertension; E11.9 Type 2 diabetes mellitus without complications; Z86.73 Personal history of transient ischemic attack (TIA), and cerebral infarction without residual deficits; H54.62 Unqualified visual loss, left eye, normal vision right eye; D12.0 Benign neoplasm of cecum; D12.3 Benign neoplasm of transverse colon
CPT/HCPCS: 36415; 43239; 45380; 45385; 80053; 82150; 82962; 83690; 85025; 93005; J2704; 94003; 94150

== ENCOUNTER 2018-10-09 09:08 | Outpatient (CLI) | payer MEDICARE, OTHER ==
[~2018-10-09 09:08] MED LIST changes: -Atropine Inj 1mg/10ml Syr IV PRN; -DiphenhydrAMINE 50mg/ml Inj IVP PRN; -Midazolam 2mg/2ml Inj IVP PRN; -fentaNYL 100 mcg/2 mL IV PRN
--- NOTE | 2018-10-09 09:57 | General Progress Note ---
Assessment/Plan Problem List: (1) Helicobacter heilmannii gastritis ICD Codes: K29.60 - Other gastritis without bleeding; B96.81 - Helicobacter pylori [H. pylori] as the cause of diseases classified elsewhere SNOMED: 550144303 (2) Colon polyps ICD Codes: K63.5 - Polyp of colon SNOMED: 33241523 (3) Nausea & vomiting ICD Codes: R11.2 - Nausea with vomiting, unspecified SNOMED: 28652772 (4) Anemia ICD Codes: D64.9 - Anemia, unspecified SNOMED: 672741718 (5) Constipation ICD Codes: K59.00 - Constipation, unspecified SNOMED: 21478921 Assessment/Plan: repeat colonoscopy in 3 years trial of Trulance Subjective ROS Limited/Unobtainable: No Allergies: Coded Allergies: CEPHALEXIN (Verified Allergy, Severe, itching, 09/24/18) Objective General Appearance: alert EENT: normal ENT inspection Neck: supple Cardiovascular: normal rate Respiratory/Chest: decreased breath sounds Abdomen: normal bowel sounds, non tender, soft Extremities: non-tender Grey De La Rosa MD Oct 09, 2018 09:56
[2018-10-09 14:27] VITALS: BP 109/66
== END 2018-10-09 11:08 | disposition home or self-care (01) ==
LOC: PAN 09:08
DX: K63.5 Polyp of colon (principal); R11.2 Nausea with vomiting, unspecified; D64.9 Anemia, unspecified; K59.00 Constipation, unspecified; K29.60 Other gastritis without bleeding; B96.81 Helicobacter pylori [H. pylori] as the cause of diseases classified elsewhere; Z88.8 Allergy status to other drugs, medicaments and biological substances
CPT/HCPCS: 99202

== ENCOUNTER 2019-01-08 09:00 | Outpatient (CLI) | payer MEDICARE, OTHER ==
--- NOTE | 2019-01-08 10:03 | General Progress Note ---
Assessment/Plan Assessment/Plan: Assessment/Plan Problem List: (1) Helicobacter heilmannii gastritis ICD Codes: K29.60 - Other gastritis without bleeding; B96.81 - Helicobacter pylori [H. pylori] as the cause of diseases classified elsewhere SNOMED: 778543536 (2) Colon polyps ICD Codes: K63.5 - Polyp of colon SNOMED: 56789130 (3) Nausea & vomiting ICD Codes: R11.2 - Nausea with vomiting, unspecified SNOMED: 74139943 (4) Anemia ICD Codes: D64.9 - Anemia, unspecified SNOMED: 092567324 (5) Constipation ICD Codes: K59.00 - Constipation, unspecified SNOMED: 75043582 Assessment/Plan: repeat colonoscopy in 3 years trial of linzess [address] of abd and pelvic Subjective ROS Limited/Unobtainable: Yes Allergies: Coded Allergies: CEPHALEXIN (Verified Allergy, Severe, itching, 09/24/18) Subjective left sided abd pain poor po intake Objective General Appearance: alert EENT: normal ENT inspection Neck: supple Cardiovascular: normal rate Respiratory/Chest: lungs clear Abdomen: soft, hypoactive bowel sounds, tender Extremities: non-tender Grey De La Rosa MD Jan 08, 2019 10:03
[2019-01-08 10:41] VITALS: BP 135/73
[2019-01-08] MEDS ORDERED: LINZESS145 MCG PO (10:41)
== END 2019-01-08 11:00 | disposition home or self-care (01) ==
LOC: PAN 09:00
DX: K63.5 Polyp of colon (principal); R11.2 Nausea with vomiting, unspecified; D64.9 Anemia, unspecified; K29.60 Other gastritis without bleeding; B96.81 Helicobacter pylori [H. pylori] as the cause of diseases classified elsewhere; K59.00 Constipation, unspecified; Z88.8 Allergy status to other drugs, medicaments and biological substances
CPT/HCPCS: 99212

== ENCOUNTER → 2019-01-16 | Outpatient (CLI) | payer MEDICARE, OTHER ==
[~2019-01-16] MED LIST changes: +LINZESS145 MCG PO
--- NOTE | 2019-01-16 12:28 | Diagnostic Imaging Report ---
Clinical Indication: Left lower quadrant abdominal pain for 3 months Technique: No oral contrast utilized, per emergency room physician request IV administration nonionic contrast. Venous phase spiral acquisition obtained through the abdomen and pelvis. Multiplanar reconstructions were generated. Total dose length product 811 mGycm. CTDIvol(s) 14 mGy. Dose reduction achieved using automated exposure control Comparison: April 19, 2018 Findings: The appendix is normal. There is colonic diverticulosis, particularly distally. No findings to suggest acute diverticulitis. Ingested contrast has traversed most of the small bowel, does not quite reach the terminal ileum. No small bowel distention or small bowel wall thickening. The distal esophagus, stomach, duodenum are unremarkable. No free or loculated intraperitoneal gas or fluid is evident. There is a small fat-containing umbilical hernia. The rectum is mildly distended with gas. The gallbladder has been removed. There is no biliary ductal dilatation demonstrated. The liver demonstrates a subcentimeter low-attenuation lesion in segment 2 which is too small to characterize but is unchanged from the prior study. The pancreas, spleen, adrenals, kidneys are unremarkable. There is a circumaortic left renal vein incidentally noted. No retroperitoneal or mesenteric mass or adenopathy. No pelvic mass or adenopathy. There is atherosclerotic mural thickening and possibly some resultant narrowing of the bilateral common iliac arteries. The included lung bases demonstrate a tiny cystic space in the inferolateral right middle lobe. The bones are unremarkable Impression: No definite acute abnormality Colonic diverticulosis. 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
== END | disposition home or self-care (01) ==
LOC: CAT 08:15
DX: R10.32 Left lower quadrant pain (principal); Z90.49 Acquired absence of other specified parts of digestive tract; K57.90 Diverticulosis of intestine, part unspecified, without perforation or abscess without bleeding; K44.9 Diaphragmatic hernia without obstruction or gangrene
CPT/HCPCS: 74177; Q9967

== ENCOUNTER 2019-01-29 09:18 | Outpatient (CLI) | payer MEDICARE, OTHER ==
[2019-01-29 12:30] VITALS: BP 145/83
--- NOTE | 2019-01-30 10:08 | General Progress Note ---
Assessment/Plan Assessment/Plan: Assessment/Plan Problem List: (1) Helicobacter heilmannii gastritis ICD Codes: K29.60 - Other gastritis without bleeding; B96.81 - Helicobacter pylori [H. pylori] as the cause of diseases classified elsewhere SNOMED: 205575976 (2) Colon polyps ICD Codes: K63.5 - Polyp of colon SNOMED: 97065589 (3) Nausea & vomiting ICD Codes: R11.2 - Nausea with vomiting, unspecified SNOMED: 30476310 (4) Anemia ICD Codes: D64.9 - Anemia, unspecified SNOMED: 816559954 (5) Constipation ICD Codes: K59.00 - Constipation, unspecified SNOMED: 23454029 Assessment/Plan: last colonoscopy 12/2018 repeat colon in [address] of abd and pelvic reviewed with the patient Subjective ROS Limited/Unobtainable: Yes Allergies: Coded Allergies: CEPHALEXIN (Verified Allergy, Severe, itching, 09/24/18) Objective Last 24 Hour Vital Signs Date Time Temp Pulse Resp B/P (MAP) Pulse Ox O2 Delivery O2 Flow Rate FiO2 01/29/19 12:30 97.8 96 18 145/83 (103) 98 General Appearance: alert EENT: normal ENT inspection Neck: supple Cardiovascular: normal rate Respiratory/Chest: lungs clear Abdomen: normal bowel sounds, non tender, soft Extremities: non-tender Grey De La Rosa MD Jan 30, 2019 10:08
== END 2019-01-29 11:18 | disposition home or self-care (01) ==
LOC: PAN 09:18
DX: K29.60 Other gastritis without bleeding (principal); B96.81 Helicobacter pylori [H. pylori] as the cause of diseases classified elsewhere; K63.5 Polyp of colon; R11.2 Nausea with vomiting, unspecified; D64.9 Anemia, unspecified; K59.00 Constipation, unspecified; Z88.8 Allergy status to other drugs, medicaments and biological substances

== ENCOUNTER 2019-03-05 08:48 | Outpatient (CLI) | payer MEDICARE, OTHER ==
[2019-03-05 09:10] VITALS: BP 147/88
--- NOTE | 2019-03-05 09:45 | General Progress Note ---
Assessment/Plan Assessment/Plan: Assessment/Plan Problem List: (1) Helicobacter heilmannii gastritis ICD Codes: K29.60 - Other gastritis without bleeding; B96.81 - Helicobacter pylori [H. pylori] as the cause of diseases classified elsewhere SNOMED: 695403634 (2) Colon polyps ICD Codes: K63.5 - Polyp of colon SNOMED: 19591511 (3) Nausea & vomiting ICD Codes: R11.2 - Nausea with vomiting, unspecified SNOMED: 48827874 (4) Anemia ICD Codes: D64.9 - Anemia, unspecified SNOMED: 804212586 (5) Constipation ICD Codes: K59.00 - Constipation, unspecified SNOMED: 72899956 Assessment/Plan: last colonoscopy 12/2018 repeat colon in [address] of abd and pelvic reviewed with the patient elevated amylase past medical history of pancreatitis some Wt loss plan EUS next week plan xifaxan 550 Subjective ROS Limited/Unobtainable: Yes Allergies: Coded Allergies: CEPHALEXIN (Verified Allergy, Severe, itching, 09/24/18) Objective General Appearance: alert EENT: normal ENT inspection Neck: supple Cardiovascular: normal rate Respiratory/Chest: decreased breath sounds Abdomen: normal bowel sounds, non tender, soft Extremities: non-tender Grey De La Rosa MD Mar 05, 2019 09:45
== END 2019-03-05 14:19 | disposition home or self-care (01) ==
LOC: PAN 08:48
DX: K29.60 Other gastritis without bleeding (principal); B96.81 Helicobacter pylori [H. pylori] as the cause of diseases classified elsewhere; K63.5 Polyp of colon; R11.2 Nausea with vomiting, unspecified; D64.9 Anemia, unspecified; K59.00 Constipation, unspecified; Z88.8 Allergy status to other drugs, medicaments and biological substances

== ENCOUNTER 2019-03-26 10:09 | Outpatient (CLI) | payer MEDICARE, OTHER ==
--- NOTE | 2019-03-26 10:49 | General Progress Note ---
Assessment/Plan Assessment/Plan: Assessment/Plan Problem List: (1) Helicobacter heilmannii gastritis ICD Codes: K29.60 - Other gastritis without bleeding; B96.81 - Helicobacter pylori [H. pylori] as the cause of diseases classified elsewhere SNOMED: 780244621 (2) Colon polyps ICD Codes: K63.5 - Polyp of colon SNOMED: 25678530 (3) Nausea & vomiting ICD Codes: R11.2 - Nausea with vomiting, unspecified SNOMED: 68832116 (4) Anemia ICD Codes: D64.9 - Anemia, unspecified SNOMED: 730681017 (5) Constipation ICD Codes: K59.00 - Constipation, unspecified SNOMED: 90601666 Assessment/Plan: last colonoscopy 12/2018 repeat colon in [address] of abd and pelvic reviewed with the patient elevated amylase past medical history of pancreatitis some Wt loss s/p EUS will start Creon Subjective ROS Limited/Unobtainable: Yes Allergies: Coded Allergies: CEPHALEXIN (Verified Allergy, Severe, itching,skin rash, 03/13/19) Objective General Appearance: alert EENT: normal ENT inspection Neck: supple Cardiovascular: normal rate Respiratory/Chest: lungs clear Abdomen: normal bowel sounds, non tender, soft Extremities: non-tender Grey De La Rosa MD Mar 26, 2019 10:49
[2019-03-26 13:37] VITALS: BP 144/69
== END 2019-03-26 12:09 | disposition home or self-care (01) ==
LOC: PAN 10:09
DX: K59.00 Constipation, unspecified (principal); K29.60 Other gastritis without bleeding; B96.81 Helicobacter pylori [H. pylori] as the cause of diseases classified elsewhere; K63.5 Polyp of colon; R11.2 Nausea with vomiting, unspecified; D64.9 Anemia, unspecified
CPT/HCPCS: 99212

== ENCOUNTER 2019-05-07 08:54 | Outpatient (CLI) | payer MEDICARE, OTHER ==
[2019-05-07] MEDS ORDERED: CREON DR 36,001 EACH PO (09:31)
[2019-05-07] MEDS ORDERED: TRULANCE PO (09:34)
[2019-05-07 09:35] VITALS: BP 150/75
--- NOTE | 2019-05-07 09:44 | General Progress Note ---
Assessment/Plan Assessment/Plan: Assessment/Plan Problem List: (1) Helicobacter heilmannii gastritis ICD Codes: K29.60 - Other gastritis without bleeding; B96.81 - Helicobacter pylori [H. pylori] as the cause of diseases classified elsewhere SNOMED: 517752532 (2) Colon polyps ICD Codes: K63.5 - Polyp of colon SNOMED: 49698087 (3) Nausea & vomiting ICD Codes: R11.2 - Nausea with vomiting, unspecified SNOMED: 42172406 (4) Anemia ICD Codes: D64.9 - Anemia, unspecified SNOMED: 864938465 (5) Constipation ICD Codes: K59.00 - Constipation, unspecified SNOMED: 34358508 Assessment/Plan: last colonoscopy 12/2018 repeat colon in [address] of abd and pelvic reviewed with the patient past medical history of pancreatitis some Wt loss s/p EUS on Creon with some improvement fu PMD for surg referral for hernia repair RTC 3 months Subjective ROS Limited/Unobtainable: Yes Allergies: Coded Allergies: CEPHALEXIN (Verified Allergy, Severe, itching,skin rash, 03/13/19) Subjective abd pain Objective Last 24 Hour Vital Signs Date Time Temp Pulse Resp B/P (MAP) Pulse Ox O2 Delivery O2 Flow Rate FiO2 05/07/19 09:35 97.2 87 16 150/75 (100) 97 General Appearance: alert EENT: normal ENT inspection Neck: supple Cardiovascular: normal rate Respiratory/Chest: decreased breath sounds Abdomen: normal bowel sounds, soft, tender Extremities: non-tender Grey De La Rosa MD May 07, 2019 09:44
== END 2019-05-07 14:40 | disposition home or self-care (01) ==
LOC: PAN 08:54
DX: K29.60 Other gastritis without bleeding (principal); B96.81 Helicobacter pylori [H. pylori] as the cause of diseases classified elsewhere; K63.5 Polyp of colon; R11.2 Nausea with vomiting, unspecified; D64.9 Anemia, unspecified; K59.00 Constipation, unspecified; Z88.8 Allergy status to other drugs, medicaments and biological substances
CPT/HCPCS: 99212